=== PATIENT | male | born 1960 | race Hispanic/Latino ===

== ENCOUNTER 2016-12-20 10:04 | Inpatient (IN) | payer MEDICARE ==
[2016-12-20] MEDS ORDERED: methylPREDNISolone Sod Succ/PF 125 MG/2 ML VIAL ONE (10:30)
[2016-12-20] MEDS ORDERED: Water For Inject, Bacteriostat 30 ML ONE (10:30)
[2016-12-20 10:54] LABS: #Basophils 0.1 thou/uL (0.0-0.2); #Eosinphils 0.2 thou/uL (0.0-0.7); #Monocytes 0.6 thou/uL (0.11-0.59); #Neutrophils 4.3 thou/uL (1.40-6.50); %Basophils 0.9 % (0.0-1.0); %Eosinophils 2.7 % (0.0-10.0); %Monocytes 7.7 % (0.0-10.0); Hematocrit 44.8 % (42.0-52.0); Mean Platelet Volume 7.2 fL (7.4-10.4); Red Blood Cell (RBC) Count 4.28 mill/uL (4.70-6.10); White Blood Cell (WBC) Count 7.1 thou/uL (4.8-10.8)
[2016-12-20 11:03] LABS: ALT (SGPT) 17 U/L (8-55); AST (SGOT) 17 U/L (5-34); Alkaline Phosphatase 115 U/L (40-150); Anion Gap 14 mmol/L (10-20); BUN (Urea Nitrogen) 19 mg/dL (8.4-25.7); Bilirubin, Total 0.8 mg/dL (0.2-1.2); Calc. Creatinine Clearance 0 mL/min (70-130); Calcium 9.7 mg/dL (7.8-10.44); Carbon Dioxide 30 mmol/L (22-29); Chloride 102 mmol/L (98-107); Estimated GFR-MDRD 12; Globulin 3.9 g/dL (2.4-3.5); Protein, Total 7.9 g/dL (6.0-8.3)
[2016-12-20 11:07] LABS: Troponin I 0.035 ng/mL (< 0.028)
--- NOTE | 2016-12-20 11:11 | RAD ---
UPRIGHT PORTABLE CHEST ONE VIEW: HISTORY: A 56-year-old male with cough and wheezing. The patient is on dialysis. COMPARISON: 09/03/2016 FINDINGS: Postop midline sternotomy and right ICD. Monitor leads overly the chest. Bilateral vascular conges tion with minimal costophrenic angle blunting and suggestion of small pleural effusions. Appearance is stable to actually slightly improved from the 09/03/2016 study. No confluent pneumonia. IMPRESSION: 1. Postoperative midline sternotomy and right implantable cardioverter-defibrillator. 2. Minimal cardiomegaly, mild vascular congestion, and small pleural effusions, showing improvement from 09/03/2016. 3. No significant new process. POS: [facility]
[2016-12-20] MEDS ORDERED: cefTRIAXone\\ROCEPHIN 1 GM VIAL ONE (12:15)
[2016-12-20] MEDS ORDERED: Ondansetron HCl/PF 4 MG/2 ML Vial IVP PRN (13:05)
[2016-12-20] MEDS ORDERED: Acetaminophen 325 MG TAB PO PRN (13:05)
[2016-12-20] MEDS ORDERED: Ondansetron ODT 4 MG TAB SL PRN (13:05)
[2016-12-20 14:04] VITALS: BMI 32.1
[2016-12-20] MEDS ORDERED: Nitroglycerin 0.4 MG TAB (25 Tab Bottle) SL PRN (14:30)
[2016-12-20] MEDS ORDERED: ALPRAZolam 1 MG TAB PO PRN (14:30)
[2016-12-20] MEDS ORDERED: Albuterol Sulfate 2.5 mg/3 ml Neb NEB PRN (14:30)
[2016-12-20] MEDS: Heparin 5,000 UNITS/ML VIAL SC SCH ×2 (15:24→21:19)
[2016-12-20] MEDS ORDERED: Dextrose 50% Abboject 50 ML SYRINGE SLOW IVP PRN (16:01)
[2016-12-20] MEDS ORDERED: Dextrose 5% in Water 1,000 ML IV PRN (16:01)
[2016-12-20] MEDS ORDERED: HumaLOG 300 UNITS/3 ML VIAL SC PRN (16:01)
[2016-12-20] MEDS: Sevelamer Carbonate 800 MG TAB PO SCH (17:39)
--- NOTE | 2016-12-20 17:43 | HP-2 ---
CODE STATUS: FULL. PRIMARY CARE PHYSICIAN: Kathryn Huggins M.D. ATTENDING PHYSICIAN: Kathryn Huggins M.D. RESIDENT: Latoya Sebastian D.O. HISTORIAN: Patient and prior records. SPECIALIST: David Campbell M.D. CHIEF COMPLAINT: Difficulty breathing. HISTORY OF PRESENT ILLNESS: This is a 56-year-old patient with end-stage renal disease, on hemodialysis Sunday, Sunday, Sunday with Dr. Campbell, coronary artery disease status post CABG in 2006, diastolic congestive heart failure with the last EF of 60-65% on 08/2016 and atrial fibrillation status post pacemaker, presenting with complaints of shortness of breath during dialysis today. He did get his full 4hour treatment of dialysis today. During his dialysis, the patient became hypoxic and was sent to the emergency room. He notes some white sputum productive cough over the past 10 days, but denies any fevers, chills, nausea, or vomiting. Admits to increase shortness of breath; however, he did have his oxygen taken away about 2 months ago as he was not returning enough oxygen tanks at that time. Since that time, he has had progressive shortness of breath and feels that this has worsened and is unable to lay flat. In the emergency room, he was given 1 gram of Rocephin IV piggyback, methylprednisolone, and DuoNebs x3. He was feeling much better and getting ready for discharge home; however, he was noted to desaturation down to 77% upon exertion and looked ashen at that time; therefore, the patient was admitted to the hospital. PAST MEDICAL HISTORY: 1. End-stage renal disease on hemodialysis Sunday, Sunday, Sunday. 2. Insulin-dependent diabetes. 3. Atrial fibrillation status post pacemaker. 4. Hypertension. 5. Chronic thrombocytopenia. 6. Hyperlipidemia. 7. Anxiety. 8. Coronary artery disease status post CABG in 2006. 9. GERD. 10. Diastolic congestive heart failure, ejection fraction of 60-65% on 08/2016. 11. History of hepatitis C noted on previous labs; however, the patient has never been treated for this and unsure if he was really diagnosed with this. PAST SURGICAL HISTORY: 1. PD catheter placement and subsequent removal. 2. AV fistula. 3. Cuffed hemodialysis catheter. 4. CABG in 2006. 5. Pacemaker. 6. Left [id number] amputation. 7. Left toe removal. ALLERGIES: 1. CEPHALEXIN. 2. FOSINOPRIL. 3. KEFLEX. 4. MONOPRIL. 5. BACLOFEN. MEDICATIONS: 1. Nitro 0.4 mg sublingual p.r.n. chest pain. 2. Alprazolam 1 mg p.o. b.i.d. p.r.n. 3. Diltiazem extended release 120 mg p.o. daily. 4. Lantus 20 units subcu at bedtime. 5. Paroxetine 10 mg p.o. daily. 6. Atorvastatin 40 mg p.o. daily. 7. Renvela 800 mg tablets take 6 tablets by mouth 3 times a day. 8. Aspirin 325 mg p.o. daily. 9. Vitamin B complex with folic acid/ Dialyvite take one p.o. daily. 10. Isosorbide mononitrate extended release 60 mg p.o. daily. 14. ProAir, albuterol 1-2 puffs by mouth q.4 h. p.r.n. shortness of breath. 15. Metoprolol succinate extended release 25 mg p.o. daily. FAMILY HISTORY: Mom has diabetes. Dad of heart disease. SOCIAL HISTORY: Smoked half pack a day for several years but quit several years ago. Denies any current alcohol or drug use. He is with one child. REVIEW OF SYSTEMS: GENERAL: He denies any fevers, chills, or appetite changes. EYES: Denies any vision changes or eye pain. ENT: Admits to nasal congestion, rhinorrhea. Denies any sore throat. RESPIRATORY: Admits to cough, congestion, shortness of breath, exercise intolerance. CARDIOVASCULAR: Denies any chest pain, palpitations, or edema. Admits to paroxysmal nocturnal dyspnea and orthopnea. GASTROINTESTINAL: Denies any nausea, vomiting, diarrhea, constipation, abdominal pain, or GI pain. No GI bleeding. GENITOURINARY: Denies making any urine. SKIN: Denies any rashes or lesions. MUSCULOSKELETAL: Denies any pain or tenderness. NEUROLOGIC: Denies any weakness or numbness. PSYCHIATRIC: He does have chronic anxiety. Denies any depression. PHYSICAL EXAMINATION: VITAL SIGNS: Blood pressure 117/78, pulse 81, respirations of 24, T-max 97.8, pulse ox 99% on 3 liters. Current weight 89 kilograms. GENERAL: Alert and oriented x4. He is currently on oxygen. He is well developed. EYES: Pupils equal and reactive to light. Extraocular muscles are intact. He does have bilateral scleral icterus. ENT: He does have nasal mucosa within normal limits. He does have postnasal drip. NECK: Supple. No lymphadenopathy. CARDIOVASCULAR: Distant heart sounds, difficult to hear due to his lung sounds. He does have wheezing, rhonchi and crackles bilaterally both lungs. SKIN: He does have multiple tattoos. No cyanosis noted. ABDOMEN: Soft, nontender to palpation. He does have hepatomegaly. EXTREMITIES: Left BKA. No cyanosis, no edema. NEUROLOGIC: No focal deficits. Cranial nerves II-XII intact. GCS of 15. PSYCHIATRIC: Appropriate. LABORATORY DATA:CBC: WBC 7.1, hemoglobin of 14.1, hematocrit of 44.8, and platelets 105. CMP: Sodium 143, potassium 3.4, chloride 102, bicarbonate 30, BUN 19, creatinine 4.92, which is down from his baseline creatinine of about 6-9, and glucose 93. Calcium 9.7, total bilirubin 0.8, total protein 7.9, albumin 4.0, AST 17, ALT 17 , and alkaline phosphatase 115. CK-MB 3.3. Troponin I 0.03, which is down from his typical 0.059. EKG shows paced rhythm. Chest x-ray postoperative sternotomy and right implantable CV defibrillator, minimal cardiomegaly, mild vascular congestion, small pleural effusion which is also improved since last chest x-ray 3 months ago. ASSESSMENT AND PLAN: This is a 56-year-old patient with end-stage renal disease on hemodialysis Sunday, Sunday, and Sunday, who presents with dyspnea: 1. Acute Hypoxic Respiratory Failure, likely secondary to acute on chronic COPD. Patient previously was on home oxygen, however was not using it enough, so it was taken away. Will need request home oxygen. Educate patient on the importance of this. 2. Acute on chronic obstructive pulmonary disease exacerbation. Continue prednisone 40 mg p.o. daily, DuoNebs, albuterol p.r.n., Levofloxacin 750 mg IV daily. We will need home oxygen prior to discharging the patient. 3. End-stage renal disease on hemodialysis. Consult with Dr. Campbell. Continue home medications. He will continue dialysis Sunday, Sunday, Sunday and possibly go for dialysis again this afternoon to see if he can tolerate more at this time. 4. Hepatitis C positive in the past. We will recheck hepatitis C RNA and HIV and RPR were discussed with the patient. The patient has never been treated before some likely we will need GI consult as outpatient for further evaluation and consideration of treatment. 5. History of paroxysmal atrial fibrillation, status post pacemaker. The patient currently paced. Continue home medications. 6. Hyperlipidemia. Continue home medications. 7. Anxiety. Continue home medications, stable. 8. Coronary artery disease status post coronary artery bypass graft in 2006. Continue home medications. 9. Gastroesophageal reflux disease. Continue home medications. 10. Diastolic congestive heart failure. Last echo on 2016 which showed EF of 60-65%. 11. Chronic thrombocytopenia which is stable. Disposition lengthy hospital stay 2 days. This history and physical exam as well as management were discussed with Dr. Huggins, who agrees with the above assessment and plan. LINA
[2016-12-20 18:34] LABS: PTT 33.9 SEC (22.9-36.1); Prothrombin Time 16.1 SEC (12.0-14.7)
[2016-12-20 18:51] LABS: Troponin I 0.025 ng/mL (< 0.028)
[2016-12-20] MEDS: Atorvastatin Calcium 40 MG TAB PO SCH (21:18)
[2016-12-20] MEDS: Insulin Detemir 100 UNITS/ML 20 UNITS in Pre-Filled Syringe 1 EACH SC SCH (21:19)
[2016-12-20 21:32] LABS: Troponin I 0.012 ng/mL (< 0.028)
[2016-12-21 05:04] LABS: #Lymphocytes 0.7 thou/uL (1.20-3.40); #Monocytes 0.2 thou/uL (0.11-0.59); #Neutrophils 3.9 thou/uL (1.40-6.50); %Basophils 0.2 % (0.0-1.0); %Eosinophils 0.3 % (0.0-10.0); %Lymphocytes 14.1 % (21.0-51.0); %Monocytes 4.3 % (0.0-10.0); Hematocrit 40.1 % (42.0-52.0); Mean Platelet Volume 7.8 fL (7.4-10.4); Red Blood Cell (RBC) Count 3.79 mill/uL (4.70-6.10); White Blood Cell (WBC) Count 4.8 thou/uL (4.8-10.8)
[2016-12-21 05:34] LABS: ALT (SGPT) 14 U/L (8-55); AST (SGOT) 13 U/L (5-34); Alkaline Phosphatase 100 U/L (40-150); BUN (Urea Nitrogen) 38 mg/dL (8.4-25.7); Bilirubin, Total 0.5 mg/dL (0.2-1.2); Calc. Creatinine Clearance 15 mL/min (70-130); Calcium 9.9 mg/dL (7.8-10.44); Chloride 97 mmol/L (98-107); Estimated GFR-MDRD 8; Globulin 3.5 g/dL (2.4-3.5); Protein, Total 7.1 g/dL (6.0-8.3)
[2016-12-21 05:55] LABS: Anion Gap 19 mmol/L (10-20); Carbon Dioxide 25 mmol/L (22-29)
[2016-12-21] MEDS: HumaLOG 300 UNITS/3 ML VIAL SC PRN ×2 (06:17→16:58)
--- NOTE | 2016-12-21 09:04 | PDOC.FM ---
- Subjective Subjective: Hospital day 2 pt reports his SOB has improved and he is able to clear sputum. Desaturates off of O2. Will likely need home O2 since he was previously on it. Denies CP, NVDC. No acute events overniht - Objective Vital Signs & Weight: Vital Signs (12 hours) Temp Pulse Resp BP Pulse Ox 12/21/16 07:03 98 12/21/16 07:01 89 20 98 12/21/16 07:00 97.6 F 81 18 154/69 H 91 L 12/21/16 04:39 98.0 F 85 18 126/75 98 12/21/16 01:01 98.1 F 80 18 105/62 97 Weight Weight 90.22 kg I&O: 12/20/16 12/21/16 12/22/16 06:59 06:59 06:59 Intake Total 670 Output Total 4000 Balance -3330 Result Diagrams: 12/21/16 04:07 12/21/16 04:07 <Brayan Rm - Last Filed: 12/21/16 09:06> - Objective Vital Signs & Weight: Vital Signs (12 hours) Temp Pulse Resp BP BP Pulse Ox 12/21/16 09:42 87 154/69 H 12/21/16 07:03 98 12/21/16 07:01 89 20 98 12/21/16 07:00 97.6 F 81 18 154/69 H 91 L 12/21/16 04:39 98.0 F 85 18 126/75 98 12/21/16 01:01 98.1 F 80 18 105/62 97 Weight Weight 90.22 kg I&O: 12/20/16 12/21/16 12/22/16 06:59 06:59 06:59 Intake Total 670 Output Total 4000 Balance -3330 Result Diagrams: 12/21/16 04:07 12/21/16 04:07 <Robson Saxena - Last Filed: 12/21/16 10:17> Phys Exam - Physical Examination Constitutional: NAD HEENT: PERRLA, moist MMs, sclera anicteric Respiratory: wheezing present diffuse rhonchi and end expiratory wheezes Cardiovascular: RRR, no significant murmur, no rub Gastrointestinal: soft, non-tender, no distention, positive bowel sounds Musculoskeletal: no edema s/p left BKA, right TMA Neurological: non-focal, moves all 4 limbs <Brayan Rm - Last Filed: 12/21/16 09:06> Dx/Plan (1) COPD (chronic obstructive pulmonary disease) Status: Acute (2) Hypoxia Code(s): R09.02 - HYPOXEMIA Status: Acute (3) CAD (coronary artery disease), [place] coronary artery Code(s): I25.10 - ATHSCL HEART DISEASE OF [place] CORONARY ARTERY W/O ANG PCTRS Status: Chronic Qualifiers: [place] vs. transplanted heart: [place] heart (4) Diabetes mellitus, type II, insulin dependent Code(s): E11.9 - TYPE 2 DIABETES MELLITUS WITHOUT COMPLICATIONS; Z79.4 - LEAD HANDLER (CURRENT) USE OF INSULIN Status: Chronic (5) End stage renal disease on dialysis Code(s): N18.6 - END STAGE RENAL DISEASE; Z99.2 - DEPENDENCE ON RENAL DIALYSIS Status: Chronic (6) HTN (hypertension) Code(s): I10 - ESSENTIAL (PRIMARY) HYPERTENSION Status: Chronic Qualifiers: Hypertension type: essential hypertension Qualified Code(s): I10 - Essential (primary) hypertension - Plan Plan: continue home medications for chronic medical conditions, continue dialysis duonebs carmen and prn will add flutter valve/is continnue abx continue oral prednisone pt clinical picture improved, continue current treatment <Brayan Rm - Last Filed: 12/21/16 09:06> Attending Addendum - Attending Addendum I personally evaluated the patient and discussed the management with Dr. Rm. I agree with the History, Examination, Assessment and Plan documented above with any addition or exceptions noted below. 1/2 BCx positive. Will await 48hour results. Patient significantly improved from yesterday. Will need home oxygen. Likely d/c home tomorrow. <Rboson Saxena - Last Filed: 12/21/16 10:17>
[2016-12-21] MEDS: predniSONE 20 MG TAB PO SCH (09:38)
[2016-12-21] MEDS: Metoprolol Tartrate 25 MG TAB PO SCH (09:38)
[2016-12-21] MEDS: Aspirin 325 MG TAB PO SCH (09:38)
[2016-12-21] MEDS: Folic Acid/Vit B Comp W-C PO SCH (09:40)
[2016-12-21] MEDS: PARoxetine 20 MG TAB PO SCH (09:41)
[2016-12-21] MEDS: Sevelamer Carbonate 800 MG TAB PO SCH ×3 (09:43→16:42)
[2016-12-21] MEDS: Heparin 5,000 UNITS/ML VIAL SC SCH ×3 (09:44→20:58)
--- NOTE | 2016-12-21 14:08 | CON ---
DATE OF CONSULTATION: 12/21/2016 HISTORY OF PRESENT ILLNESS: Mr. Goodman is a 56-year-old white male with ESRD and admitted for short ness of breath. He underwent hemodialysis yesterday with maximal fluid removal. However, after lauren lysis, he was noted to be hypoxemic, was sent to the ER. He was noted to have COPD exacerbation. N eb treatments were given with improvement of the breathing early this morning. I did review the [facility] st x-ray which showed increased lung markings but this is improved from a previous chest x-ray. My bias is to do an extra dialysis - 2 hours with him. REVIEW OF SYSTEMS: No chest pain. Positive for shortness of breath. No nausea, no vomiting, no di arrhea, no syncopal episode, no fever or chills. No gross hematuria. No dysuria, no urinary freque ncy, no diarrhea, no constipation. No hematochezia, no melena, no hematemesis. MEDICATIONS: DuoNeb q.4 hours p.r.n. and regular schedules, Xanax 1 mg p.o. b.i.d. as needed, Lipit or 40 mg at bedtime, aspirin 325 mg tablet once a day, heparin 5000 units subcu t.i.d., diltiazem CD 120 mg q. day, insulin detemir 20 units subcutaneously at bedtime, Humalog sliding scale, Imdur 60 mg daily, Levaquin 500 mg every other day, Nitrostat p.r.n., Paxil 10 mg q. day, prednisone 40 mg q. a.m., Renvela 800 mg 5 tablets t.i.d., vitamin D as needed, and vitamin B q. day. PAST MEDICAL HISTORY: 1. ESRD - maintenance hemodialysis. 2. COPD. 3. Coronary artery disease. 4. Status post [place]. 5. Peripheral vascular disease. 6. Status post calciphylaxis. 7. Hyperlipidemia. 8. Depression. PAST SURGICAL HISTORY: 1. Status post left BKA. 2. Status post skin biopsy. 3. Status post cardiac CABG. 4. Status post PD catheter placement with subsequent removal. 5. Status post AV fistula placement. 6. Status post pacemaker placement. 7. Status post cuffed dialysis catheter placement. 8. Status post right toe removal. 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 S tatus post multiple blood transfusions. Education 8th grade. Status post placement of multiple tat toos. Smoked for 30 years, two packs a day, currently no alcohol. No IV drug abuse. FAMILY HISTORY: No family history of ESRD. ALLERGIES: HALDOL, BACLOFEN, KEFLEX, and LISINOPRIL. TRAUMA: None. IMMUNIZATIONS: Up to date. HOSPITALIZATIONS: Please see past medical history. PHYSICAL EXAMINATION: VITAL SIGNS: Blood pressure is noted at 154/69, heart rate 89, respiratory rate 20, and pulse ox 98 %. GENERAL: Awake, ambulatory, comfortable, obese, not in distress. SKIN: Adequate turgor. HEENT: Pinkish conjunctivae, anicteric sclerae. NECK: No neck mass, no carotid bruits, no JVD. CHEST: No deformities. LUNGS: Clear breath sounds. No wheezing, no crackles. HEART: Normal sinus rhythm. No murmur, no gallops, no rubs. ABDOMEN: Globular, soft, nontender. EXTREMITIES: No edema, status post left BKA. NEUROLOGIC: Awake, oriented in 3 spheres. Moving all extremities. No tremors. LABORATORY DATA: On 12/21/2016, white count 4.8, hemoglobin 12.7. Sodium 138, potassium 4.4, chlor colby 97, carbon dioxide 25, BUN 38, creatinine 6.88, glucose 284, calcium 9.1, albumin 3.6. Chest x- ray, increased lung markings. Troponin I 0.012. ASSESSMENT AND PLAN: 1. Shortness of breath, most likely from chronic obstructive pulmonary disease exacerbation. How er, due to findings of increased lung markings, we will do extra hemodialysis and will attempt to re move between 2 and 3 liters of fluid. 2. End-stage renal disease. After today's hemodialysis, we will place him back on Sunday, , Sunday dialysis session. His last Kt/V suggests he is adequately dialyzed with the current dialy sis regimen. Overall, agree with current management.
[2016-12-21] MEDS ORDERED: Docusate 100 MG CAP PO PRN (17:30)
[2016-12-21] MEDS: Insulin Detemir 100 UNITS/ML 20 UNITS in Pre-Filled Syringe 1 EACH SC SCH (20:58)
[2016-12-21] MEDS: Atorvastatin Calcium 40 MG TAB PO SCH (20:58)
[2016-12-22 00:45] VITALS: BP 109/72
[2016-12-22 08:22] LABS: Hepatitis A Total ABS Positive (Negative)
--- NOTE | 2016-12-22 08:50 | PDOC.FM ---
- Subjective Subjective: Pt reports he is feeling much better and his SOB has improved. Denies productive cough. Oxygen saturations have been much better overnight on 1-2LNC. He will require home oxygen. - Objective Vital Signs & Weight: Weight Admit Weight 90.22 kg Weight 90.22 kg I&O: 12/21/16 12/22/16 12/23/16 06:59 06:59 06:59 Intake Total 670 Output Total 4000 Balance -3330 Result Diagrams: 12/21/16 04:07 12/21/16 04:07 Phys Exam - Physical Examination Constitutional: NAD HEENT: moist MMs Respiratory: no rales scattered rhonchi and end expiratory wheezes, more pronounced in bases Cardiovascular: RRR, no significant murmur, no rub Gastrointestinal: soft, non-tender, no distention left BKA, rt LE TMA Neurological: non-focal, moves all 4 limbs Dx/Plan (1) COPD (chronic obstructive pulmonary disease) Status: Acute (2) Hypoxia Code(s): R09.02 - HYPOXEMIA Status: Acute (3) CAD (coronary artery disease), [place] coronary artery Code(s): I25.10 - ATHSCL HEART DISEASE OF [place] CORONARY ARTERY W/O ANG PCTRS Status: Chronic Qualifiers: [place] vs. transplanted heart: [place] heart (4) Diabetes mellitus, type II, insulin dependent Code(s): E11.9 - TYPE 2 DIABETES MELLITUS WITHOUT COMPLICATIONS; Z79.4 - KITCHEN HELPER (CURRENT) USE OF INSULIN Status: Chronic (5) End stage renal disease on dialysis Code(s): N18.6 - END STAGE RENAL DISEASE; Z99.2 - DEPENDENCE ON RENAL DIALYSIS Status: Chronic (6) HTN (hypertension) Code(s): I10 - ESSENTIAL (PRIMARY) HYPERTENSION Status: Chronic Qualifiers: Hypertension type: essential hypertension Qualified Code(s): I10 - Essential (primary) hypertension - Plan Plan: -pt will require home o2 for acute on chronic hypoxic/hypercapnic respiratory failure -failed walk test with O2 dropping to 86% by standing from sitting w/o O2. -dialysis today copd exacerbation resolving, continue flutter valve/IS, continue abx, continue duonebs
--- NOTE | 2016-12-22 10:16 | PRG ---
DATE OF SERVICE: 12/22/2016 RENAL MEDICINE SUBJECTIVE: Mr. Goodman is a 56-year-old white male with ESRD admitted for COPD exacerbation. [facility] is much improved. He also underwent 2 consecutive dialysis. I am currently at the bedside s upervising his dialysis. No new complaints. Shortness of breath has much improved. PHYSICAL EXAMINATION: VITAL SIGNS: Blood pressure 109/72, heart rate 84, respiratory rate 18, temperature 97.5, and pulse ox 99%. GENERAL: Awake, alert, supine, comfortable, not in distress. SKIN: Adequate turgor. HEENT: He has pinkish conjunctivae, anicteric sclerae. NECK: No neck mass, no carotid bruits, no JVD. CHEST: No deformities. LUNGS: Clear breath sounds, no wheezing, no crackles. HEART: Normal sinus rhythm. No murmur, no gallops or rubs. ABDOMEN: Globular, soft, nontender. EXTREMITIES: No edema, status post left BKA. MEDICATIONS: Medications of 12/22/2016 was reviewed. LABORATORY DATA: Laboratories of 12/21/2016; sodium 138, potassium 4.4, chloride 97, carbon dioxide 25, BUN 38, creatinine 6.88, AST 13, ALT 14. ASSESSMENT AND PLAN: 1. Shortness of breath - secondary to chronic obstructive pulmonary disease exacerbation. Continue current nebulizer treatment, possibility of superimposed congestive heart failure also remains as a possibility, but I doubt it. However, he did receive 2 consecutive dialysis for fluid removal. 2. End-stage renal disease, stable. Tolerating current hemodialysis regimen, maxing out fluid juan j wayne as tolerated by the patient. Agree with current management.
[2016-12-22] MEDS: Sevelamer Carbonate 800 MG TAB PO SCH ×2 (11:28→11:33)
[2016-12-22] MEDS: Aspirin 325 MG TAB PO SCH (11:29)
[2016-12-22] MEDS: predniSONE 20 MG TAB PO SCH (11:29)
[2016-12-22] MEDS: Metoprolol Tartrate 25 MG TAB PO SCH (11:30)
[2016-12-22] MEDS: Folic Acid/Vit B Comp W-C PO SCH (11:30)
[2016-12-22] MEDS: PARoxetine 20 MG TAB PO SCH (11:31)
[2016-12-22 12:01] VITALS: TEMP 97.9
[2016-12-25 14:16] LABS: Hepatitis C Quantitation 218000 IU/mL (.); log10 5.338 (.)
--- NOTE | 2016-12-26 08:43 | DIS-2 ---
DATE OF ADMISSION: 12/20/2016 DATE OF DISCHARGE: 12/22/2016 LOCATION: [place], [place]. RESIDENT PHYSICIAN: Brayan Rm D.O. ADMITTING ATTENDING: Dr. Robson Saxena. DISCHARGE ATTENDING: Dr. Robson Saxena. CONSULTATION: Nephrology, Dr. David Campbell. PROCEDURES: Chest x-ray done on 12/20/2016 showed postoperative midline sternotomy and right implan table cardioverter defibrillator. Also showed minimal cardiomegaly, mild diastolic congestion and s mall pleural effusion, showing improvement since 09/03/2016. No significant new process. PRIMARY DIAGNOSIS: Hypoxic hypercapnic respiratory failure. SECONDARY DIAGNOSES: 1. Chronic obstructive pulmonary disease exacerbation. 2. Type 2 diabetes mellitus. 3. End-stage renal disease on dialysis. 4. Coronary artery disease. 5. Hypertension. 6. Hepatitis C. 7. Atrial fibrillation. DISCHARGE MEDICATIONS: 1. Levaquin 500 mg p.o. 2. Xanax 1 mg p.o. b.i.d. 3. Albuterol 1.25 mg nebulized q.8 hours. 4. ProAir 2 puff q.4 hours p.r.n. 5. Aspirin 325 mg p.o. daily. 6. Atorvastatin 40 mg p.o. at bedtime. 7. Cardizem 120 mg p.o. daily. 8. Levemir 20 units subcu at bedtime. 9. Imdur 60 mg p.o. daily. 10. Lopressor 25 mg p.o. daily. 11. Nitrostat 0.4 mg p.o. q.5 minutes p.r.n. 12. Paroxetine 10 mg p.o. daily. 13. Renvela 6 capsules p.o. t.i.d. with meals. 14. Prednisone 40 mg p.o. q.a.m. x2 days. DISCONTINUED MEDICATIONS: None. HISTORY OF PRESENT ILLNESS/HOSPITAL COURSE: The patient is a 56-year-old male that recently present ed to [place] [facility] on 12/20/2016 with chief complaint of shortness of breath during dialysis. Duri ng dialysis, it was noted that the patient became hypoxic and he was sent to the ER. In the ER, he was given nebulizer treatment, Rocephin and azithromycin and treated for COPD exacerbation and subse quently admitted to the floor. The patient has a history of previously being on home O2; however, t his was recently stopped for unknown reasons. In the hospital, the patient his walk test and desat jodie to less than 86% simply by standing. The patient was afebrile and vitals were stable throughout the hospital stay and the patient was satting at 95%-97% on 1-2 liters nasal cannula without ambula tion. The patient's dialysis was continued in hospital and the patient had a uncomplicated hospital course. He was sent home on Levaquin, which was renally dosed and prednisone to complete a 5-days course of prednisone. Additionally, the patient was sent home on home oxygen and will likely requir e oxygen chronically. DISPOSITION: The patient left the hospital in stable condition. DISCHARGE LOCATION: Discharged to home. DISCHARGE DIET: Heart healthy, renal diet. DISCHARGE ACTIVITY: As tolerated. FOLLOWUP: Follow up with primary care physician in 2-3 weeks.
== END 2016-12-22 15:17 | disposition home or self-care (01) | DRG 190 ==
LOC: ERS 10:04 → T4-B 11:49
PROVIDERS: ADMIT Family Medicine; ATTEND Family Medicine
PROC: 5A1D60Z (ICD-10-PCS; principal; 2016-12-21)
DX: J44.1 Chronic obstructive pulmonary disease with (acute) exacerbation (principal); N18.6 End stage renal disease; J96.21 Acute and chronic respiratory failure with hypoxia; I13.2 Hypertensive heart and chronic kidney disease with heart failure and with stage 5 chronic kidney disease, or end stage renal disease; D69.6 Thrombocytopenia, unspecified; E11.22 Type 2 diabetes mellitus with diabetic chronic kidney disease; J96.22 Acute and chronic respiratory failure with hypercapnia; I50.32 Chronic diastolic (congestive) heart failure; Z95.0 Presence of cardiac pacemaker; E78.5 Hyperlipidemia, unspecified; F41.9 Anxiety disorder, unspecified; I25.10 Atherosclerotic heart disease of native coronary artery without angina pectoris; Z95.1 Presence of aortocoronary bypass graft; Z79.4 Long term (current) use of insulin; I25.2 Old myocardial infarction; Z89.512 Acquired absence of left leg below knee; Z99.2 Dependence on renal dialysis; Z87.891 Personal history of nicotine dependence; Z86.19 Personal history of other infectious and parasitic diseases
CPT/HCPCS: 36415; 36416; 71010; 80053; 82553; 84484; 85025; 85610; 85730; 86704; 86706; 86708; 86780; 87040; 87149; 87340; 87389; 87521; 90935; 93005; 94640; 96374; 96375; G0257; J0696; J1644; J1815; J1956; J2930; J7506; J7620

== ENCOUNTER 2017-12-03 09:47 | Emergency (ER) | payer MEDICARE ==
[2017-12-03 10:17] LABS: #Eosinphils 0.1 thou/uL (0.0-0.7); #Monocytes 0.5 thou/uL (0.11-0.59); #Neutrophils 4.8 thou/uL (1.40-6.50); %Basophils 0.3 % (0.0-1.0); %Eosinophils 1.1 % (0.0-10.0); %Lymphocytes 15.1 % (21.0-51.0); %Monocytes 8.2 % (0.0-10.0); %Neutrophils 75.3 % (42.0-75.0); Hemoglobin 12.8 g/dL (14.0-18.0); Mean Corpuscular HGB CONC 33.7 g/dL (32.0-36.0); Mean Corpuscular Hemoglobin 32.6 pg (27.0-31.0); Mean Corpuscular Volume 96.6 fL (78.0-98.0); Mean Platelet Volume 6.8 fL (7.4-10.4); Platelet Count 120 thou/uL (130-400); RBC Distribution Width 14.1 % (11.5-14.5); Red Blood Cell (RBC) Count 3.94 mill/uL (4.70-6.10); White Blood Cell (WBC) Count 6.4 thou/uL (4.8-10.8)
--- NOTE | 2017-12-03 10:33 | RAD ---
PORTABLE CHEST: HISTORY: Chest pain. COMPARISON: A 12/20/16 exam. FINDINGS: Heart size is enlarged. There are postop sternotomy changes and a pacemaker. Pulmonary vessels are engorged. Prominent main pulmonary arteries are also seen. Slightly increased perihilar lung markin gs. IMPRESSION: Cardiomegaly with a suggestion of some pulmonary edema change, also prominent pulmonary arteries rais ing the possibility of some element of pulmonary artery hypertension. POS: [facility]
[2017-12-03 10:35] LABS: ALT (SGPT) 21 U/L (8-55); AST (SGOT) 24 U/L (5-34); Albumin 3.7 g/dL (3.5-5.0); Alkaline Phosphatase 162 U/L (40-150); Anion Gap 15 mmol/L (10-20); BUN (Urea Nitrogen) 21 mg/dL (8.4-25.7); Bilirubin, Total 0.8 mg/dL (0.2-1.2); CK (CPK) 66 U/L (30-200); Calc. Creatinine Clearance 0 mL/min (70-130); Calcium 8.9 mg/dL (7.8-10.44); Carbon Dioxide 28 mmol/L (22-29); Chloride 96 mmol/L (98-107); Estimated GFR-MDRD 12; Globulin 3.8 g/dL (2.4-3.5); Glucose 82 mg/dL (70-105); Potassium 3.7 mmol/L (3.5-5.1); Protein, Total 7.5 g/dL (6.0-8.3); Sodium 135 mmol/L (136-145)
[2017-12-03 10:38] LABS: CKMB 5.7 ng/mL (0-6.6); Troponin I 0.026 ng/mL (< 0.028)
== END 2017-12-03 14:51 | disposition home or self-care (01) ==
LOC: ERS 09:47
DX: I13.2 Hypertensive heart and chronic kidney disease with heart failure and with stage 5 chronic kidney disease, or end stage renal disease (principal); N18.6 End stage renal disease; I50.84 End stage heart failure; I25.10 Atherosclerotic heart disease of native coronary artery without angina pectoris; E11.9 Type 2 diabetes mellitus without complications; Z99.2 Dependence on renal dialysis
CPT/HCPCS: 36415; 71045; 80053; 82550; 82553; 83880; 84484; 85025; 93005

== ENCOUNTER 2017-12-26 10:21 | Observation (INO) | payer MEDICARE ==
--- NOTE | 2017-12-26 10:59 | RAD ---
PORTABLE CHEST ONE VIEW: 12/26/2017 10:30 a.m. HISTORY: Chest pain. The patient finished dialysis today. COMPARISON: 12/03/2017 FINDINGS: The heart size is enlarged. There are changes of median sternotomy. A right-sided pacemaker device remains in place. There is mild pulmonary vascular congestion. No pneumothorax, pneumothoraces, or large effusions are seen. Small pleural effusions may be present. POS: [facility]
[2017-12-26 11:08] LABS: #Eosinphils 0.1 thou/uL (0.0-0.7); #Lymphocytes 0.9 thou/uL (1.20-3.40); #Monocytes 0.6 thou/uL (0.11-0.59); #Neutrophils 4.3 thou/uL (1.40-6.50); %Basophils 0.8 % (0.0-1.0); %Lymphocytes 15.5 % (21.0-51.0); %Monocytes 10.1 % (0.0-10.0); %Neutrophils 72.6 % (42.0-75.0); Hemoglobin 12.7 g/dL (14.0-18.0); Mean Corpuscular Hemoglobin 32.1 pg (27.0-31.0); Mean Platelet Volume 7.4 fL (7.4-10.4); Platelet Count 98 thou/uL (130-400); Red Blood Cell (RBC) Count 3.97 mill/uL (4.70-6.10)
[2017-12-26] MEDS ORDERED: Nitroglycerin 2% Ointment 1 INCH/1 GM Packet ONE (11:21)
[2017-12-26] MEDS ORDERED: Nitroglycerin 0.4 MG TAB (25 Tab Bottle) ONE (11:21)
[2017-12-26 11:32] LABS: CKMB 5.6 ng/mL (0-6.6)
[2017-12-26 12:11] LABS: ALT (SGPT) 23 U/L (8-55); AST (SGOT) 27 U/L (5-34); Albumin 3.9 g/dL (3.5-5.0); Alkaline Phosphatase 173 U/L (40-150); Anion Gap 14 mmol/L (10-20); BUN (Urea Nitrogen) 23 mg/dL (8.4-25.7); Bilirubin, Total 0.6 mg/dL (0.2-1.2); CK (CPK) 47 U/L (30-200); Calc. Creatinine Clearance 0 mL/min (70-130); Calcium 9.3 mg/dL (7.8-10.44); Carbon Dioxide 30 mmol/L (22-29); Chloride 100 mmol/L (98-107); Estimated GFR-MDRD 13; Glucose 100 mg/dL (70-105); Lipase 51 U/L (8-78); Potassium 3.8 mmol/L (3.5-5.1); Protein, Total 7.9 g/dL (6.0-8.3); Sodium 140 mmol/L (136-145)
[2017-12-26] MEDS ORDERED: Morphine 4 MG/ML VIAL ONE (13:26)
[2017-12-26] MEDS ORDERED: Ondansetron HCl/PF 4 MG/2 ML Vial ONE (13:27)
[2017-12-26] MEDS ORDERED: Ondansetron ODT 4 MG TAB SL PRN (15:11)
[2017-12-26] MEDS ORDERED: Ondansetron HCl/PF 4 MG/2 ML Vial IVP PRN (15:11)
[2017-12-26] MEDS ORDERED: Acetaminophen 325 MG TAB PO PRN (15:11)
[2017-12-26] MEDS ORDERED: Nitroglycerin 0.4 MG TAB (25 Tab Bottle) PO PRN (15:31)
[2017-12-26 15:48] VITALS: BMI 34.7
--- NOTE | 2017-12-26 16:00 | PDOC.FPRHP ---
- History of Present Illness Chief Complaint: Chest pain History of Present Illness: This is a 57 yo M w/hx of CAD s/p multi vessel CABG, DM2, ESRD on HD, and COPD here with complaint of worsening exertional chest pain. Pt states that for the past month he has had chest pain and heart palpitation with any activity more than walking 50 ft to his vehicle. He states that there have been times during the periods of chest pain where he has associated n/v and diaphoresis, however this does not happen often. He takes nitro when he has the pain which helps. Per patient, his most recent cath resulted in findings of significant non operable disease. Since then he has not followed up with cardiology. He does not know when his last had a stress test or echo. Today in the ED he had 2 indeterminate trops at 0.03 with no concerning EKG findings. - Allergies/Adverse Reactions Allergies Allergy/AdvReac Type Severity Reaction Status Date / Time baclofen Allergy Verified 12/01/13 02:39 cephalexin monohydrate Allergy Rash Verified 12/01/13 02:39 [From Keflex] fosinopril sodium Allergy Verified 12/01/13 02:39 [From Monopril] haloperidol [From Haldol] Allergy Verified 12/01/13 02:39 haloperidol lactate Allergy Verified 12/01/13 02:39 [From Haldol] - Home Medications Medication Instructions Recorded Confirmed Type Aspirin 325 mg PO DAILY 11/05/12 12/26/17 History ALPRAZolam [Xanax] 1 mg PO BID #0 12/02/13 12/26/17 Rx Albuterol Sulfate 1.25 mg NEB S3HI-OR PRN #0 neb 07/16/15 12/26/17 Rx Albuterol Sulfate [Proair HFA] 2 puff INH Q4HR PRN #0 inh 07/16/15 12/26/17 Rx Atorvastatin Calcium [Lipitor] 40 mg PO HS #0 tab 07/16/15 12/26/17 Rx Isosorbide Mononitrate [Imdur] 60 mg PO DAILY #30 tab 07/16/15 12/26/17 Rx Nitroglycerin [Nitrostat] 0.4 mg PO Q5MIN PRN #0 tab 07/16/15 12/26/17 Rx Paroxetine HCl [PARoxetine HCl] 10 mg PO DAILY #0 tablet 07/16/15 12/26/17 Rx Diltiazem CD [Cardizem CD] 120 mg PO DAILY 12/20/16 12/26/17 History Insulin Detemir 100 UNITS/ML 20 units SC HS 12/20/16 12/26/17 History [Levemir] Metoprolol Tartrate [Lopressor] 25 mg PO DAILY 12/20/16 12/26/17 History Sevelamer Carbonate [Renvela] 6 cap PO TID-WM 12/20/16 12/26/17 History Folic Acid/Vit B Comp W-C 1 tab PO DAILY tab 12/22/16 12/26/17 Rx [Nephro-Ang] predniSONE 40 mg PO QAM-WM #4 tab 12/22/16 12/26/17 Rx Ranolazine [Ranexa] 500 mg PO BID #60 tab 12/27/17 Rx - History PMHx: CAD s/p CABG DM2 ESRD HLD pAfib s/p ablation Anxiety PSHx: CABG L BKA R mid tarsal amputation FHx: Social: 40 pack yr smoking hx, current non smoker Hx of etoh abuse, no longer drinks - Review of Systems General: denies: fever/chills, weight/appetite/sleep changes Eyes: reports: other (Complains of swelling of R upper eye lid. No changes in vision, discharge, eye pain, photophobia). denies: eye pain, vision changes ENT: denies: nasal congestion, rhinorrhea Respiratory: reports: exercise intolerance. denies: cough, congestion, shortness of breath Cardiovascular: reports: chest pain, palpitation. denies: edema, orthopnea Gastrointestinal: reports: nausea (x1). denies: vomiting, abdominal pain Skin: denies: rashes, lesions, jaundice Musculoskeletal: denies: pain, tenderness, stiffness Neurological: denies: numbness, syncope Psychological: denies: anxiety, depression - Vital signs BP: 102/65 HR: 81 RR: 14 Tmax: 97.3 Pox: 94% on 2L Wt: 100 kg - Physical Exam Constitutional: NAD, awake, alert and oriented HEENT: normocephalic and atraumatic, PERRLA, EOMI, MMM -HEENT: Edema and erythema of R upper eye lid. No tenderness or discharge. No photophobia Neck: trachea midline Chest: no-tender to palpation, no lesions Heart: RRR, no murmurs/rubs/gallops, no edema Lungs: CTAB, no respiratory distress, good air movement Abdomen: soft, non-tender Musculoskeletal: normal structure -Musculoskeletal: L BKA R transmetatarsal amputation Neurological: no focal deficit, CN II-XII intact Skin: no rash/lesions, good turgor Heme/Lymphatic: no unusual bruising or bleeding Psychiatric: normal mood and affect FMR H&P: Results - Labs Result Diagrams: 12/26/17 10:54 12/26/17 11:35 Lab results: WBC 6.0 thou/uL (4.8-10.8) 12/26/17 10:54 Hgb 12.7 g/dL (14.0-18.0) L 12/26/17 10:54 Hct 41.1 % (42.0-52.0) L 12/26/17 10:54 MCV 103.0 fL (78.0-98.0) H 12/26/17 10:54 Plt Count 98 thou/uL (130-400) L 12/26/17 10:54 Neutrophils % 72.6 % (42.0-75.0) 12/26/17 10:54 Sodium 140 mmol/L (136-145) 12/26/17 11:35 Potassium 3.8 mmol/L (3.5-5.1) 12/26/17 11:35 Chloride 100 mmol/L (98-107) 12/26/17 11:35 Carbon Dioxide 30 mmol/L (22-29) H 12/26/17 11:35 BUN 23 mg/dL (8.4-25.7) 12/26/17 11:35 Creatinine 4.80 mg/dL (0.6-1.3) H 12/26/17 11:35 Glucose 100 mg/dL (70-105) 12/26/17 11:35 Calcium 9.3 mg/dL (7.8-10.44) 12/26/17 11:35 Total Bilirubin 0.6 mg/dL (0.2-1.2) 12/26/17 11:35 AST 27 U/L (5-34) 12/26/17 11:35 ALT 23 U/L (8-55) 12/26/17 11:35 Alkaline Phosphatase 173 U/L (40-150) H 12/26/17 11:35 Creatine Kinase 47 U/L (30-200) 12/26/17 11:35 CK-MB (CK-2) 5.6 ng/mL (0-6.6) 12/26/17 10:54 B-Natriuretic Peptide 966.5 pg/mL (0-100) H 12/26/17 11:35 Serum Total Protein 7.9 g/dL (6.0-8.3) 12/26/17 11:35 Albumin 3.9 g/dL (3.5-5.0) 12/26/17 11:35 Lipase 51 U/L (8-78) 12/26/17 11:35 - EKG Interpretation EKG: V paced. NSR at 82. No ST or T wave changes - Radiology Interpretation Chest x-ray Status: image reviewed by me, report reviewed by me (No acute process) FMR H&P: A/P - Problem List (1) Chest pain Current Visit: No Status: Acute Code(s): R07.9 - CHEST PAIN, UNSPECIFIED Qualifiers: Chest pain type: chest pain due to myocardial ischemia Ischemic chest pain type: stable angina pectoris Qualified Code(s): I20.8 - Other forms of angina pectoris (2) COPD (chronic obstructive pulmonary disease) Current Visit: No Status: Chronic (3) CAD (coronary artery disease), [place] coronary artery Current Visit: No Status: Chronic Code(s): I25.10 - ATHSCL HEART DISEASE OF [place] CORONARY ARTERY W/O ANG PCTRS Qualifiers: [place] vs. transplanted heart: [place] heart (4) Diabetes mellitus, type II, insulin dependent Current Visit: No Status: Chronic Code(s): E11.9 - TYPE 2 DIABETES MELLITUS WITHOUT COMPLICATIONS; Z79.4 - FDC (CURRENT) USE OF INSULIN (5) End stage renal disease on dialysis Current Visit: No Status: Chronic Code(s): N18.6 - END STAGE RENAL DISEASE; Z99.2 - DEPENDENCE ON RENAL DIALYSIS (6) HTN (hypertension) Current Visit: No Status: Chronic Code(s): I10 - ESSENTIAL (PRIMARY) HYPERTENSION Qualifiers: Hypertension type: essential hypertension Qualified Code(s): I10 - Essential (primary) hypertension (7) Hepatitis C Current Visit: No Status: Chronic Code(s): B19.20 - UNSPECIFIED VIRAL HEPATITIS C WITHOUT HEPATIC COMA (8) Hyperlipidemia Current Visit: No Status: Chronic Code(s): E78.5 - HYPERLIPIDEMIA, UNSPECIFIED (9) Macrocytic anemia Current Visit: No Status: Chronic Code(s): D53.9 - NUTRITIONAL ANEMIA, UNSPECIFIED - Plan 1. Typical chest pain - most likely stable angina. - Patient apparently has known non operable CAD, will consult cardiology for further recommendations. It is unlikely that pt is a good candidate for stress test or cath. - Trend trops x3 - monitor on tele obs - nitro prn 2. CAD - continue home statin and imdur - pending cards recommendations will consider palliative consultation 3. DM2 - Continue home meds, currently well controlled - Low carb diet - BG ACHS 4. ESRD - consult Dr Campbell. MWF HD 5. HTN - controlled, continue home meds 6. COPD - at baseline. Code DNR Diet Consistent Carb, High protein, Heart healthy. NPO at midnight PPx Heparin Dispo: Guarded. Pt likely has a non operable condition and will need to be medically managed only. Length of stay pending cardiology recommendation FMR H&P: Upper Level - Plan Date/Time: 12/26/17 7067 I, [], have evaluated this patient and agree with findings/plan as outlined by manager internship resident. Pertinent changes/additions are listed here. Attending Addendum - Attending Addendum Date/Time: 12/26/17 4534 I personally evaluated the patient and discussed the management with Dr. Church I agree with the History, Examination, Assessment and Plan documented above with any addition or exceptions noted below. 57 yo male with multiple end-stage medical conditions presents with angina. Patient now with improved pain. Reports increased RAMOS with chest pain with short distances occuring more frequently. Associated with diaphoresis. VS reviewed. Labs reviewed. EKG reviewed. PE unchanged from resident exam as documented. 1. End-stage CAD: Inoperable disease per last cardiology note. Patient has some follow up with Dr. Grande. Continue current home meds with prn nitro. Consider Renexa but will discuss case with cards. 2. End-stage renal dz: Due for HD every //. No evidence of significant anemia that would worsen symptoms. Continue to monitor on tele. Trend labs. Consult cards and nephro. Adjust home meds as needed. Follow other co-morbidities. Santos
[2017-12-26] MEDS ORDERED: Dextrose 5% in Water 1,000 ML IV PRN (17:29)
[2017-12-26] MEDS ORDERED: Dextrose 50% Abboject 50 ML SYRINGE SLOW IVP PRN (17:29)
[2017-12-26] MEDS ORDERED: HumaLOG 300 UNITS/3 ML VIAL SC PRN ×2 (17:29)
[2017-12-26 18:10] LABS: Troponin I 0.028 ng/mL (< 0.028)
[2017-12-26] MEDS ORDERED: Melatonin 3 MG TAB PO PRN (20:11)
--- NOTE | 2017-12-26 21:02 | CON ---
DATE OF CONSULTATION: 12/26/2017 DATE OF ADMISSION: 12/26/2017 INDICATION FOR CONSULTATION: A 57-year-old patient with uncontrollable chest pain with inoperable co ronary artery disease. This is a very unfortunate 57-year-old gentleman who has been followed in the past by Dr. Lord and has underwent bypass surgery in the past. He also recently underwent a ca rdiac catheterization, I believe last year in 08/2016, at which time he was seen to have inoperable c oronary artery disease. He also has end-stage renal disease and is on hemodialysis. He had bypass s urgery in 2006. He had an echocardiogram. Most recently, I believe in 2015, this showed ejection fr action of 50%-55% with moderate left atrial dilatation, aortic valve sclerosis and mitral annular paramjit cifications and mild tricuspid and mitral valve regurgitation. He has also undergone pacemaker inser tion in the past by senior speech pathologist. There is single-chamber pacemaker to the right ventricle. He has chronic atrial fibrillation. At this time, he presented back to the hospital after he says he has chest pain which he cannot control by taking as many as 5 nitroglycerin at one time and continue d to have chest discomfort and he presented to the hospital for further evaluation and treatment with hopes that he can get something for pain relief. He is actually considered hospice in the past in t he hopes that he can get medications for his pain. He did receive some morphine today and said his p ain was much relieved, but still continues to have some mild discomfort at this time, his cardiac enz ymes were indeterminate. He does not have any significant indication that he has suffered a signific ant myocardial infarction. Troponin I was 0.03 and it is now decreased down to 0.028, which is withi n normal limits. His BNP was elevated at 965. He does undergo hemodialysis on Sunday, Wednesdays, a fridays. Does not appear that he is on any oral anticoagulations at home except for aspirin 325 m g a day. At this time, his EKG shows 100% pacing and one cannot determine if there is any evidence o f ischemia. PAST MEDICAL HISTORY: Significant for COPD, coronary artery disease, diabetes, end-stage renal disea se for which he is on hemodialysis, atrial fibrillation, hypertension, hepatitis C, hypercholesterole amelie. He has microcytic anemia. He has undergone a right forefoot amputation. He has had a left BKA . He has had bypass surgery in the past. He also had a myocardial infarction after the bypass surge ry in 2012. He has had left arm fistula for dialysis. He says fistula was placed in the right arm a nd has closed down. He has significant peripheral vascular disease. SOCIAL HISTORY: He smoked in the past up to [id number], but then he stopped. He has no alcohol us e. FAMILY HISTORY: Positive for diabetes. ALLERGIES: He is allergic to BACLOFEN, CEPHALEXIN, FOSINOPRIL, and other medications which include K eflex and HALDOL. MEDICATIONS PRIOR TO ADMISSION: Included aspirin 325 mg a day, alprazolam, albuterol nebulizer treat ments, isosorbide mononitrate 60 mg a day, nitroglycerin p.r.n., atorvastatin 40 mg a day, paroxetine HCL 10 mg a day, metoprolol 25 mg a day, Renvela 0.8 gram powder packets of 6 capsules p.o. t.i.d., he also is on insulin, diltiazem CD 120 mg a day, Folvite/vitamin B complex 1 tablet daily, prednison e 20 mg tablets, he takes 40 mg a day. REVIEW OF SYSTEMS: He denied any new HEENT complaints. He had no significant pulmonary complaints. He has some mild shortness of breath with exertion, but mainly he is limited by the chest discomfort . He has significant chest pain even at rest. He has chest pain, which is not relieved by the marilia l medications. He had no GI complaints or significant complaints. MUSCULOSKELETAL: He has some mild right lower extremity edema. Complains at times that he is able to ambulate with his prosthesi s on the left BKA. NEUROLOGIC: He denies any seizure or syncope. LABORATORY DATA: He has sodium 140, potassium is 3.8, CO2 of 30, creatinine is 4.8, alkaline phospha tase is 173. His troponin I as noted above. His hemoglobin is 12.7 with WBC of 6 and platelet count 98,000. IMPRESSION: 1. End-stage coronary disease which is inoperable. With the difficulty to treat by nitroglycerin or other medications, he is already taking beta blockers, diltiazem and aspirin as well as isosorbide 6 0 mg a day, and also p.r.n. nitroglycerin. 2. We will add Ranexa to his regimen to see if this will help some with the chest discomfort and Dr. Lord perhaps continued to manage his chest discomfort. Otherwise, I would suggest he consider speaking with the palliative care or hospice. 3. End-stage renal disease for which he will continue on his dialysis. 4. Type 2 diabetes will be dealt with by the primary care service. 5. Hypercholesterolemia. He should be taking medications. He is on atorvastatin. He will continue the atorvastatin. 6. History of hypertension. This is stable at this time. 7. Significant peripheral vascular disease. He is somewhat stable PHYSICAL EXAMINATION: MUSCULOSKELETAL: I could not palpate a right pedal pulse. He does have some mild discoloration of l ower extremity, but no significant edema was noted and he is status post a left BKA. A popliteal pul se was palpable in the right side. Otherwise, examination was relatively unremarkable ABDOMEN: Soft and flat and nontender. CARDIOVASCULAR: He has a regular rate and rhythm. He appears to be pacing. There is a well healed surgical incision on the left infraclavicular area after pacemaker insertion. He has no abdominal di scomfort. There were no masses palpable. CHEST: Clear to auscultation. Carotid pulses also are present. I did not hear any bruits. At this time, we will continue the medicines as noted and further care of the patient will be determi laura by Dr. Lord when he sees the patient tomorrow.
[2017-12-26] MEDS: Heparin 5,000 UNITS/ML VIAL SC SCH (21:53)
--- NOTE | 2017-12-27 08:10 | PDOC.FM ---
- Subjective Subjective: Pt seen at bedside this morning. No acute distress. He denies continued chest pain. No new symptoms. No acute events over night - Objective Vital Signs & Weight: Vital Signs (12 hours) Temp Pulse Resp BP Pulse Ox 12/27/17 04:06 97.6 F 82 18 102/55 L 95 Weight Weight 102.376 kg I&O: 12/26/17 12/27/17 12/28/17 06:59 06:59 06:59 Intake Total 700 Output Total 0 Balance 700 Result Diagrams: 12/26/17 10:54 12/26/17 11:35 <Roly Church - Last Filed: 12/27/17 08:07> - Objective Vital Signs & Weight: Vital Signs (12 hours) Temp Pulse Resp BP Pulse Ox 12/27/17 11:00 98.5 F 86 20 113/68 92 L 12/27/17 08:05 98.2 F 80 20 111/63 96 12/27/17 04:06 97.6 F 82 18 102/55 L 95 Weight Weight 102.376 kg I&O: 12/26/17 12/27/17 12/28/17 06:59 06:59 06:59 Intake Total 700 Output Total 0 Balance 700 Result Diagrams: 12/26/17 10:54 12/26/17 11:35 <Walker Ordonez - Last Filed: 12/27/17 13:27> Phys Exam - Physical Examination Constitutional: NAD HEENT: PERRLA, moist MMs Neck: no nodes, no JVD Respiratory: clear to auscultation bilateral Cardiovascular: RRR, no significant murmur Gastrointestinal: soft, non-tender, no distention Musculoskeletal: no edema L BKA, R mid tarsal amputation Neurological: non-focal, normal sensation, moves all 4 limbs Psychiatric: normal affect, A&O x 3 Skin: no rash, normal turgor <Roly Church - Last Filed: 12/27/17 08:07> Dx/Plan (1) Chest pain Code(s): R07.9 - CHEST PAIN, UNSPECIFIED Status: Acute Qualifiers: Chest pain type: chest pain due to myocardial ischemia Ischemic chest pain type: stable angina pectoris Qualified Code(s): I20.8 - Other forms of angina pectoris (2) COPD (chronic obstructive pulmonary disease) Status: Chronic (3) CAD (coronary artery disease), [place] coronary artery Code(s): I25.10 - ATHSCL HEART DISEASE OF [place] CORONARY ARTERY W/O ANG PCTRS Status: Chronic Qualifiers: [place] vs. transplanted heart: [place] heart (4) Diabetes mellitus, type II, insulin dependent Code(s): E11.9 - TYPE 2 DIABETES MELLITUS WITHOUT COMPLICATIONS; Z79.4 - VACUUM SPINDLE SANDER (CURRENT) USE OF INSULIN Status: Chronic (5) End stage renal disease on dialysis Code(s): N18.6 - END STAGE RENAL DISEASE; Z99.2 - DEPENDENCE ON RENAL DIALYSIS Status: Chronic (6) HTN (hypertension) Code(s): I10 - ESSENTIAL (PRIMARY) HYPERTENSION Status: Chronic Qualifiers: Hypertension type: essential hypertension Qualified Code(s): I10 - Essential (primary) hypertension (7) Hepatitis C Code(s): B19.20 - UNSPECIFIED VIRAL HEPATITIS C WITHOUT HEPATIC COMA Status: Chronic (8) Hyperlipidemia Code(s): E78.5 - HYPERLIPIDEMIA, UNSPECIFIED Status: Chronic (9) Macrocytic anemia Code(s): D53.9 - NUTRITIONAL ANEMIA, UNSPECIFIED Status: Chronic - Plan Plan: 1. Typical chest pain - most likely stable angina. - Per cardiology medical management only. Adding Ranexa. Pt will see Dr Lord today, then ready for dc - monitor on tele obs - nitro prn 2. CAD - continue home statin and imdur. Ranexa as above - will discuss hospice 3. DM2 - Continue home meds, currently well controlled - Low carb diet - BG ACHS 4. ESRD - consult Dr Campbell. [facility] 5. HTN - controlled, continue home meds 6. COPD - at baseline. Code DNR Diet Consistent Carb, High protein, Heart healthy. NPO at midnight PPx Heparin Dispo: Pt is currently stable for discharge <Roly Church - Last Filed: 12/27/17 08:07> Attending Addendum - Attending Addendum Date/Time: 12/27/17 0247 I personally evaluated the patient and discussed the management with Dr. Church. I agree with the History, Examination, Assessment and Plan documented above with any addition or exceptions noted below. <Walker Ordonez - Last Filed: 12/27/17 13:27>
[2017-12-27] MEDS: Heparin 5,000 UNITS/ML VIAL SC SCH ×2 (09:50→16:18)
--- NOTE | 2017-12-27 09:50 | CON ---
DATE OF CONSULTATION: 12/27/2017 HISTORY OF PRESENT ILLNESS: Mr. Goodman is a 57-year-old white male with ESRD, coronary artery diseas e, diabetes mellitus, COPD, and admitted for chest pain. His chest pain was unrelieved by sublingual nitro. He came today ER and is now admitted for further management. We are now being consulted for his maintenance hemodialysis. Please note, he did receive his regular dialysis yesterday. He has a lso been evaluated by his metallurgy laboratory technician. The plan is for the moment medical management. In addition, Ranexa has been added to his current cardiac meds. His chest pain is much improved this morning. REVIEW OF SYSTEMS: Intermittent chest pain, no shortness of breath, no nausea, no vomiting, no diarr hea, no syncopal episode, no productive cough, no fever or chills, no gross hematuria, no dysuria, no urine frequency, no syncopal episode, no sore throat. Appetite and energy level is fair. MEDICATIONS: Heparin 5000 units subcu t.i.d., Humalog sliding scale, melatonin 3 mg at bedtime, Divina xa 500 mg p.o. b.i.d. HOME MEDICATIONS: Include sevelamer 800 mg 4-5 capsules t.i.d., paroxetine 10 mg daily, metoprolol t artrate 25 mg daily, Imdur 60 mg daily, diltiazem CD 120 mg daily, aspirin 325 mg once a day, Xanax 1 mg p.o. b.i.d. PAST MEDICAL HISTORY: 1. ESRD from diabetic nephropathy on maintenance hemodialysis Sunday, Sunday, and Sunday. 2. Chronic obstructive pulmonary disease. 3. Coronary artery disease. 4. Status post myocardial infarction. 5. Peripheral vascular disease. 6. Hyperlipidemia. 7. Depression. 8. The patient is also status post calciphylaxis. PAST SURGICAL HISTORY: 1. Status post cuffed hemodialysis catheter placement. 2. Status post AV fistula placement. 3. Status post cardiac catheterization. 4. Status post CABG. 5. Status post skin biopsy. 6. Status post left BKA. 7. Status post right toe removal. 8. Status post pacemaker placement. 9. Status post PD catheter placement with subsequent removal. 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 Lives in [place]. S tatus post multiple blood transfusions. No IV drug abuse. Status post tobacco use 30 years, 2 packs a day. Alcohol none. Status post placement of multiple tattoos. FAMILY HISTORY: No family history of ESRD. ALLERGIES: HALDOL, BACLOFEN, KEFLEX, LISINOPRIL. TRAUMA: None. IMMUNIZATIONS: Up to date. HOSPITALIZATIONS: Please see past medical history. PHYSICAL EXAMINATION: VITAL SIGNS: Blood pressure 102/55, heart rate 62, respiratory rate 18, temperature 97.6, pulse ox 9 5%. GENERAL: Noted to be awake, alert, comfortable, not in overt distress. SKIN: Adequate turgor. HEENT: Pinkish conjunctivae, anicteric sclerae. NECK: No neck mass, no carotid bruits, no JVD. CHEST: No deformities. LUNGS: Clear breath sounds, no wheezing, no crackles. HEART: Normal sinus rhythm. No murmur, no gallops or rubs. ABDOMEN: Globular, soft, nontender, no masses. EXTREMITIES: No edema, no deformities. Status post leg amputation. NEUROLOGIC: Awake, oriented to 3 spheres. Moving all extremities. Noted with asterixis, no ataxia. LABORATORY DATA: 12/26/2017 - White count 6, hemoglobin 12.7. Sodium 140, potassium 3.8, chloride 1 00, carbon dioxide 30, BUN 23, creatinine 4.8, glucose 100. Troponin I 0.03. BNP 966. Chest x-ray of 12/26/2017 showed no infiltrates. There is increased lung markings. ASSESSMENT AND PLAN: 1. End-stage renal disease, stable. No indication for any emergent hemodialysis. Review of the las t Kt/V suggests he is adequately dialyzed with the current dialysis regimen. 2. Chest pain - medical management. Cardiology is following. 3. Hyperphosphatemia resume Renvela at 800 mg 4 tabs t.i.d. with meals. Overall I agree with current management. We will schedule for Sunday, Sunday, Sunday dialysis if the patient is still in the hospital.
[2017-12-27 12:00] VITALS: BP 113/68; TEMP 98.5
[2017-12-27] MEDS ORDERED: Sevelamer Carbonate 800 MG TAB PO SCH (12:00)
--- NOTE | 2017-12-27 14:55 | PRG ---
DATE OF SERVICE: 12/27/2017 SUBJECTIVE: Mr. Goodman is doing well. His symptoms have improved. He is currently on Ranexa in add ition to nitrates. PHYSICAL EXAMINATION: VITAL SIGNS: Blood pressure 113/65, pulse 86, temperature 98.5. LUNGS: Clear to auscultation. HEART: Regular rate and rhythm. ABDOMEN: Soft, nontender, nondistended. EXTREMITIES: No edema. IMPRESSION: 1. Recurrent angina. 2. Severe coronary artery disease. 3. Inoperable coronary artery disease. 4. End-stage renal disease. RECOMMENDATIONS: 1. Agree with Ranexa. 2. Continue nitrates. 3. Continue to monitor blood pressure closely. 4. From a CV standpoint, it would be okay for discharge as long as he continues to have improvement in symptoms. Plan is to follow up in the next 1-2 weeks.
--- NOTE | 2017-12-27 15:17 | EKG ---
Test Reason : Blood Pressure : / mmHG Vent. Rate : 081 BPM Atrial Rate : 093 BPM P-R Int : 000 ms QRS Dur : 196 ms QT Int : 464 ms P-R-T Axes : 000 -56 123 degrees QTc Int : 539 ms Ventricular-paced rhythm Abnormal ECG When compared with ECG of 03-DEC-2017 09:56, Vent. rate has decreased BY 4 BPM Confirmed by BRODY PRECIADO, SCheryl ([id number]) on 12/27/2017 3:16:48 PM Referred By: [facility] Confirmed By:DR. Barbara SKINNER MD
--- NOTE | 2017-12-28 00:59 | DIS-2 ---
DATE OF ADMISSION: 12/26/1917 DATE OF DISCHARGE: 12/27/2017 ADMITTING ATTENDING: Nirali Leung MD DISCHARGE ATTENDING: Walker Ordonez MD RESIDENT: Roly Church DO CONSULTATIONS: Lisa Levine MD, Cardiology; and David Campbell MD, Nephrology. PROCEDURES: Chest x-ray on 12/26/2017, finding of enlarged heart, median sternotomy right-sided pace maker in place, mild pulmonary vascular congestion, no pneumothorax or effusion. ADMITTING DIAGNOSIS: Atypical chest pain. SECONDARY DIAGNOSES: Coronary artery disease, type 2 diabetes, end-stage renal disease, hyperlipidem ia, paroxysmal atrial fibrillation, anxiety. MEDICATIONS: Aspirin 325 mg p.o. daily, Xanax 1 mg p.o. b.i.d., albuterol sulfate 1.25 mg/3 mL nebul ized q.8 hours p.r.n. shortness of breath, albuterol sulfate HFA 2 puffs inhaled q.4 hours p.r.n. sandra rtness of breath, Imdur 60 mg p.o. daily, Nitrostat 0.4 mg p.o. q.5 minutes p.r.n. chest pain, Lipito r 40 mg p.o. at bedtime, paroxetine 10 mg p.o. daily, metoprolol tartrate 25 mg p.o. daily, Renvela 0 .5 gram powder 6 caps p.o. t.i.d. with meals, Levemir 20 units before meals and at bedtime, diltiazem 120 mg p.o. daily, Nephro-Ang 1 tab p.o. daily, Prednisone 40 mg p.o. q.a.m., and Ranexa 500 mg p.o . b.i.d. HOSPITAL COURSE: This is a 57-year-old male with an extensive history of coronary artery disease, st atus post 4-vessel CABG. He had been having 4 weeks of increasing exertional chest pain and came to emergency room, where his troponins were found to be indeterminate at 0.03, followed by 0.03, followe d by 0.28. The patient was admitted for monitoring for ACS. Overnight, the patient had resolution o f chest pain. Troponins were downtrending and telemetry strip was normal. He was seen by Cardiology who was aware of the patient's history. It has been determined at a previous catheterization in 6 that he has nonoperable coronary artery disease. Cardiology recommended medical management only. Ranexa was added for anginal pain. It was recommended that the patient to follow up with Cardiology, Dr. Lord, who is his previous set off blocker for continued management. At the time of discharge, the patient was aware of his inoperable condition and the need for hospice and/or palliative care. DISCHARGE INSTRUCTIONS: 1. Location: Home. 2. Diet: Heart healthy, high protein, and low carbohydrates. 3. Activity: Ad selvin. 4. Followup: With PCP within 1 week, Dr. Kathryn Huggins of Cardiology in 1 week, Dr. Sarbjit cornejo, and with Nephrology as previously scheduled for hemodialysis.
== END 2017-12-27 16:22 | disposition home or self-care (01) ==
LOC: ERS 10:21 → 2SW 14:59
PROVIDERS: ADMIT Family Medicine; ATTEND Family Medicine
DX: I25.118 Atherosclerotic heart disease of native coronary artery with other forms of angina pectoris (principal); I12.0 Hypertensive chronic kidney disease with stage 5 chronic kidney disease or end stage renal disease; E11.22 Type 2 diabetes mellitus with diabetic chronic kidney disease; N18.6 End stage renal disease; J44.9 Chronic obstructive pulmonary disease, unspecified; I48.0 Paroxysmal atrial fibrillation; E78.5 Hyperlipidemia, unspecified; F41.9 Anxiety disorder, unspecified; F10.11 Alcohol abuse, in remission; B19.20 Unspecified viral hepatitis C without hepatic coma; D63.1 Anemia in chronic kidney disease; E78.00 Pure hypercholesterolemia, unspecified; E11.21 Type 2 diabetes mellitus with diabetic nephropathy; F32.9 Major depressive disorder, single episode, unspecified; Z87.891 Personal history of nicotine dependence; Z79.82 Long term (current) use of aspirin; Z79.4 Long term (current) use of insulin; Z79.52 Long term (current) use of systemic steroids; Z79.899 Other long term (current) drug therapy; Z88.1 Allergy status to other antibiotic agents; Z88.8 Allergy status to other drugs, medicaments and biological substances; Z95.1 Presence of aortocoronary bypass graft; Z89.512 Acquired absence of left leg below knee; Z99.2 Dependence on renal dialysis
CPT/HCPCS: 71045; 80053; 82550; 82553; 82962 ×2; 83690; 83880; 84484 ×2; 85025; 93005; 96374; 96375; 97139; 99285; G0378 ×2; 36415; 36416; 93010; J1644; J2270; J2405

== ENCOUNTER 2018-03-04 06:04 | Inpatient (IN) | payer MEDICARE ==
[2018-03-04 06:42] LABS: #Eosinphils 0.1 thou/uL (0.0-0.7); #Lymphocytes 0.7 thou/uL (1.20-3.40); #Monocytes 0.8 thou/uL (0.11-0.59); #Neutrophils 5.4 thou/uL (1.40-6.50); %Basophils 0.2 % (0.0-1.0); %Eosinophils 1.1 % (0.0-10.0); %Lymphocytes 10.3 % (21.0-51.0); %Neutrophils 77.4 % (42.0-75.0); Hemoglobin 12.8 g/dL (14.0-18.0); Mean Corpuscular HGB CONC 31.1 g/dL (32.0-36.0); Mean Corpuscular Hemoglobin 31.1 pg (27.0-31.0); Mean Corpuscular Volume 99.9 fL (78.0-98.0); Mean Platelet Volume 8.4 fL (7.4-10.4); Platelet Count 94 thou/uL (130-400); RBC Distribution Width 14.6 % (11.5-14.5); Red Blood Cell (RBC) Count 4.13 mill/uL (4.70-6.10)
[2018-03-04 06:55] LABS: Troponin I 0.021 ng/mL (< 0.028)
[2018-03-04 07:28] LABS: Albumin 3.4 g/dL (3.5-5.0)
[2018-03-04 07:30] LABS: Chloride 101 mmol/L (98-107); Potassium 6.1 mmol/L (3.5-5.1); Sodium 136 mmol/L (136-145)
[2018-03-04 07:31] LABS: Globulin 3.7 g/dL (2.4-3.5); Glucose 152 mg/dL (70-105); Protein, Total 7.1 g/dL (6.0-8.3)
[2018-03-04 07:32] LABS: Carbon Dioxide 18 mmol/L (22-29)
[2018-03-04 07:33] LABS: Bilirubin, Total 0.5 mg/dL (0.2-1.2)
[2018-03-04 07:34] LABS: Alkaline Phosphatase 149 U/L (40-150); Calc. Creatinine Clearance 0 mL/min (70-130); Estimated GFR-MDRD 6
[2018-03-04 07:35] LABS: BUN (Urea Nitrogen) 63 mg/dL (8.4-25.7)
[2018-03-04 07:36] LABS: AST (SGOT) 20 U/L (5-34)
[2018-03-04 07:37] LABS: ALT (SGPT) 19 U/L (8-55)
[2018-03-04 07:44] LABS: Anion Gap 23 mmol/L (10-20)
[2018-03-04 07:56] LABS: Actual Bicarbonate (HCO3a) 28.7 mEq/L (22-28); Analyzer IN Cardio ER; Base Excess (BEa) -1.4 mEq/L (-2.0 to +3.0); Calcium, Ionized 1.19 mmol/L (1.12-1.30); Carboxyhemoglobin (COHb) 2.2 gm% (0.0-3.0); Hemoglobin (Hb) 13.3 g/dL (14.0-18.0); O2 Tension (PaO2) 64.7 mmHg (80.0-100.0); Potassium - ABG Lab 5.79 mmol/L (3.70-5.30)
[2018-03-04 07:57] LABS: ALV-art Gradient 80.845 (0-20); CO2 Tension 77.5 mmHg (35.0-45.0); Puncture Site RBA; pH, Arterial 7.19 (7.35-7.45)
--- NOTE | 2018-03-04 08:05 | RAD ---
PORTABLE UPRIGHT FRONTAL CHEST RADIOGRAPH: DATE: 03/04/2018. COMPARISON: 12/26/2017. HISTORY: Weakness and dizziness, altered mental status. FINDINGS: Midline sternotomy wires are present. Stable single-lead transvenous pacing device. Heart is promin ent which may signify magnification and/or cardiac enlargement. There is no pneumothorax seen. There is new pulmonary vascular congestion and perihilar/bibasilar interstitial prominence. IMPRESSION: Pulmonary vascular congestion and interstitial prominence suggesting interval development of pulmonar y edema. A followup following treatment advised. POS: MICHAEL
[2018-03-04] MEDS ORDERED: methylPREDNISolone Sod Succ/PF 125 MG/2 ML VIAL ONE (08:36)
[2018-03-04 09:58] LABS: Troponin I 0.027 ng/mL (< 0.028)
[2018-03-04] MEDS ORDERED: Dextrose 50% Abboject 50 ML SYRINGE SLOW IVP PRN (10:32)
[2018-03-04] MEDS ORDERED: Dextrose 5% in Water 1,000 ML IV PRN (10:32)
[2018-03-04] MEDS ORDERED: Ondansetron PF 4 MG/2 ML Vial IVP PRN (10:39)
[2018-03-04] MEDS ORDERED: Ondansetron ODT 4 MG TAB PO PRN (10:39)
[2018-03-04] MEDS ORDERED: HumaLOG 300 UNITS/3 ML VIAL SC PRN (10:40)
[2018-03-04] MEDS ORDERED: Albuterol Sulfate 2.5 mg/3 ml Neb NEB PRN (10:40)
[2018-03-04] MEDS ORDERED: PROVENTIL INHALER 6.7 G (200 INHALATIONS) INH PRN (10:46)
[2018-03-04] MEDS ORDERED: Nitroglycerin 0.4 MG TAB (25 Tab Bottle) SL PRN (10:46)
--- NOTE | 2018-03-04 10:56 | PDOC.FPRHP ---
- History of Present Illness Chief Complaint: syncope History of Present Illness: 57 yo M w/ PMH of ESRD on HD MWF, COPD, DMII, PVD and chronic hypoxic respiratory failure requiring home O2 presented to ED after syncopal episode on his way to dialysis this AM. Pt and friend report he walked from his house to his friends home for transportation to dialysis; however, shortly after the walk to the friends house the pt ran out of oxygen on his portable O2 container. He then became extremely fatigued, had some associated SOB and dizziness and became unresponsive for approx 15-20 minutes. He was sitting when this happened and witness denies any trauma. Prior to unresponsive episode pt was attempting to switch his oxygen container nasal cnula; however, was unable to do so. He also endorses poor compliance with fluid and salt restriction over the last few days. CXR showed changes c/w pulm edema and ABG done in ED showed pH of 7.19, pCO2 of 77.5 and pO2 of 64.7 c/w acute on chronic hypoxic hypercapnic respiratory failure. He was placed on BiPap and quickly improved. Nephro was consulted from ED and plans to dialyze today. ED Course: 125 solumedrol and duoneb X1 - Allergies/Adverse Reactions Allergies Allergy/AdvReac Type Severity Reaction Status Date / Time baclofen Allergy Verified 12/01/13 02:39 cephalexin monohydrate Allergy Rash Verified 12/01/13 02:39 [From Keflex] fosinopril sodium Allergy Verified 12/01/13 02:39 [From Monopril] haloperidol [From Haldol] Allergy Verified 12/01/13 02:39 haloperidol lactate Allergy Verified 12/01/13 02:39 [From Haldol] - Home Medications Medication Instructions Recorded Confirmed Type Aspirin 325 mg PO DAILY 11/05/12 12/26/17 History ALPRAZolam [Xanax] 1 mg PO BID #0 12/02/13 12/26/17 Rx Albuterol Sulfate 1.25 mg NEB [id number] PRN #0 neb 07/16/15 12/26/17 Rx Albuterol Sulfate [Proair HFA] 2 puff INH Q4HR PRN #0 inh 07/16/15 12/26/17 Rx Atorvastatin Calcium [Lipitor] 40 mg PO HS #0 tab 07/16/15 12/26/17 Rx Isosorbide Mononitrate [Imdur] 60 mg PO DAILY #30 tab 07/16/15 12/26/17 Rx Nitroglycerin [Nitrostat] 0.4 mg PO Q5MIN PRN #0 tab 07/16/15 12/26/17 Rx Paroxetine HCl [PARoxetine HCl] 10 mg PO DAILY #0 tablet 07/16/15 12/26/17 Rx Diltiazem CD [Cardizem CD] 120 mg PO DAILY 12/20/16 12/26/17 History Insulin Detemir 100 UNITS/ML 20 units SC HS 12/20/16 12/26/17 History [Levemir] Metoprolol Tartrate [Lopressor] 25 mg PO DAILY 12/20/16 12/26/17 History Sevelamer Carbonate [Renvela] 6 cap PO TID-WM 12/20/16 12/26/17 History Folic Acid/Vit B Comp W-C 1 tab PO DAILY tab 12/22/16 12/26/17 Rx [Nephro-Ang] predniSONE 40 mg PO QAM-WM #4 tab 12/22/16 12/26/17 Rx Ranolazine [Ranexa] 500 mg PO BID #60 tab 12/27/17 Rx - History PMHx: ESRD on HD, COPD, chronic hypoxic respiratory failure, a fib, DMII PSHx: Rt TMA, left BKA, Left av fistula FHx: NA Social: Previous tobacco, no alcohol, denies drug use - Review of Systems General: reports: fatigue. denies: fever/chills ENT: denies: nasal congestion, rhinorrhea Respiratory: reports: shortness of breath, exercise intolerance. denies: cough , congestion Cardiovascular: denies: chest pain, palpitation, edema Gastrointestinal: denies: nausea, vomiting, diarrhea, constipation, abdominal pain Skin: denies: rashes, lesions Musculoskeletal: denies: pain, tenderness, stiffness Neurological: reports: syncope. denies: seizure Psychological: denies: anxiety, depression - Vital signs BP: 99/66 HR: 80 RR: 20 Tmax: 97.5 Pox: 92% on BiPAP Wt: 100Kg - Physical Exam Constitutional: awake, alert and oriented -Constitutional: on BiPap, appears comfortable HEENT: normocephalic and atraumatic, PERRLA, EOMI, conjunctiva clear, grossly normal vision, grossly normal hearing Neck: trachea midline, no JVD Heart: RRR, normal S1/S2 -Heart: JARED 2-3/6 Lungs: CTAB, no respiratory distress, good air movement, no rales/rhonchi, no wheezing, no retractions -Lungs: on BiPAP Abdomen: soft, non-tender, bowel sounds present Musculoskeletal: ROM grossly normal -Musculoskeletal: LLE BKA, RLE TMA,Left UE AV fistula w/ palpable thrill Neurological: no focal deficit Skin: no rash/lesions, good turgor, capillary refill <2 seconds Psychiatric: normal mood and affect FMR H&P: Results - Labs Result Diagrams: 03/04/18 06:27 03/04/18 06:27 Lab results: WBC 7.0 thou/uL (4.8-10.8) 03/04/18 06:27 Hgb 12.8 g/dL (14.0-18.0) L 03/04/18 06:27 Hct 41.2 % (42.0-52.0) L 03/04/18 06:27 MCV 99.9 fL (78.0-98.0) H 03/04/18 06:27 Plt Count 94 thou/uL (130-400) L 03/04/18 06:27 Neutrophils % 77.4 % (42.0-75.0) H 03/04/18 06:27 ABG pH 7.19 (7.35-7.45) L* 03/04/18 07:52 ABG pCO2 77.5 mmHg (35.0-45.0) H* 03/04/18 07:52 ABG pO2 64.7 mmHg (80.0-100.0) L 03/04/18 07:52 Sodium 136 mmol/L (136-145) 03/04/18 06:27 Potassium 6.1 mmol/L (3.5-5.1) H 03/04/18 06:27 Chloride 101 mmol/L (98-107) 03/04/18 06:27 Carbon Dioxide 18 mmol/L (22-29) L 03/04/18 06:27 BUN 63 mg/dL (8.4-25.7) H 03/04/18 06:27 Creatinine 9.49 mg/dL (0.6-1.3) H 03/04/18 06:27 Glucose 152 mg/dL (70-105) H 03/04/18 06:27 Lactic Acid 1.8 mmol/L (0.5-2.2) 03/04/18 06:27 Calcium 9.0 mg/dL (7.8-10.44) 03/04/18 06:27 Total Bilirubin 0.5 mg/dL (0.2-1.2) 03/04/18 06:27 AST 20 U/L (5-34) 03/04/18 06:27 ALT 19 U/L (8-55) 03/04/18 06:27 Alkaline Phosphatase 149 U/L (40-150) 03/04/18 06:27 Serum Total Protein 7.1 g/dL (6.0-8.3) 03/04/18 06:27 Albumin 3.4 g/dL (3.5-5.0) L 03/04/18 06:27 - Radiology Interpretation Chest x-ray Status: report reviewed by me (Pulmonary edema) FMR H&P: A/P - Problem List (1) Acute on chronic respiratory failure with hypoxia and hypercapnia Current Visit: Yes Status: Acute Code(s): J96.21 - ACUTE AND CHRONIC RESPIRATORY FAILURE WITH HYPOXIA; J96.22 - ACUTE AND CHRONIC RESPIRATORY FAILURE WITH HYPERCAPNIA (2) Increased anion gap metabolic acidosis Current Visit: Yes Status: Acute Code(s): E87.2 - ACIDOSIS (3) Hyperkalemia Current Visit: Yes Status: Acute Code(s): E87.5 - HYPERKALEMIA (4) Atrial fibrillation Current Visit: No Status: Chronic Code(s): I48.91 - UNSPECIFIED ATRIAL FIBRILLATION (5) CAD (coronary artery disease), [place] coronary artery Current Visit: No Status: Chronic Code(s): I25.10 - ATHSCL HEART DISEASE OF [place] CORONARY ARTERY W/O ANG PCTRS Qualifiers: [place] vs. transplanted heart: [place] heart (6) COPD (chronic obstructive pulmonary disease) Current Visit: No Status: Chronic (7) Diabetes mellitus, type II, insulin dependent Current Visit: No Status: Chronic Code(s): E11.9 - TYPE 2 DIABETES MELLITUS WITHOUT COMPLICATIONS; Z79.4 - MCC (CURRENT) USE OF INSULIN (8) End stage renal disease on dialysis Current Visit: No Status: Chronic Code(s): N18.6 - END STAGE RENAL DISEASE; Z99.2 - DEPENDENCE ON RENAL DIALYSIS - Plan 1) Syncope astrid 2/2 number 2 -see#2 2) Acute on chronic hypoxic hypercapnic respiratory failure on home O2 - pt ABG showed signs c/w acute on chronic respiratory failure and cxr showed pulm edema - likley multifactorial including volume overload in addition to lack of supplemental O2 - Nephro consulted from ED and plan to dialyze today - will cont BiPaP and transfer to [facility] until after dialysis, in hopes pt responds to volume removal with dialysis 3) Anion gap metabolic acidosis - in addition to primary respiratory acidosis - lactic acid negative, unlikely cause - asialey 2/2 ESRD requiring dialysis, dilutional vs lack of excretion - will plan for dialysis today and appreciate nephro recs 4) Hyperkalemia -dialysis 5) CAD - known h/o severe 4 vessel disease - not a candidate for CABG - trops negative X2 and CP free - cont home meds 6) DMII: - lantus 40 U SC HS and aggressive SSI - hold home levemir accuchecks ACHS 7) A fib - cont home meds 8) COPD - home meds - not in acute exacerbation lung exam clear 9) ESRD - see above - cont dialysis nephro consulted Code status: Chemical code only PCP: Bhavna Disposition/LOS: Guarded, >/= 2 days FMR H&P: Upper Level - Plan Date/Time: 03/04/18 1050 I, [], have evaluated this patient and agree with findings/plan as outlined by music industry intern resident. Pertinent changes/additions are listed here. Attending Addendum - Attending Addendum Date/Time: 03/04/18 1311 I personally evaluated the patient and discussed the management with Dr. Rm. I agree with the History, Examination, Assessment and Plan documented above with any addition or exceptions noted below. The patient presented following a syncopal episode likely due to acute on chronic hypoxic hypercapnic respiratory failure. Family states he ran out of oxygen and when changing the tank, he forgot to change his tubing and thus wasn' t getting oxygen. He is now on bipap with improved O2sats. He has pleural effusions and needs dialysis. Nephrology is being consulted. Pt will be admitted to [facility].
[2018-03-04 13:23] LABS: Troponin I 0.024 ng/mL (< 0.028)
[2018-03-04 16:36] VITALS: BMI 33.4
[2018-03-04] MEDS: Sevelamer Carbonate 800 MG TAB PO SCH ×2 (18:25→22:12)
[2018-03-04] MEDS: ALPRAZolam 1 MG TAB PO SCH (22:52)
[2018-03-04] MEDS: Atorvastatin Calcium 40 MG TAB PO SCH (22:52)
[2018-03-04] MEDS: Insulin Glargine 40 UNITS in Pre-Filled Syringe SC SCH (22:53)
[2018-03-05 06:29] LABS: #Lymphocytes 0.6 thou/uL (1.20-3.40); #Monocytes 0.3 thou/uL (0.11-0.59); #Neutrophils 3.7 thou/uL (1.40-6.50); %Basophils 0.3 % (0.0-1.0); %Eosinophils 0.2 % (0.0-10.0); %Lymphocytes 13.7 % (21.0-51.0); %Monocytes 6.6 % (0.0-10.0); %Neutrophils 79.3 % (42.0-75.0); Hemoglobin 13.3 g/dL (14.0-18.0); Mean Corpuscular HGB CONC 31.2 g/dL (32.0-36.0); Mean Corpuscular Volume 99.4 fL (78.0-98.0); Mean Platelet Volume 8.2 fL (7.4-10.4); Platelet Count 97 thou/uL (130-400); RBC Distribution Width 14.9 % (11.5-14.5); Red Blood Cell (RBC) Count 4.28 mill/uL (4.70-6.10); White Blood Cell (WBC) Count 4.7 thou/uL (4.8-10.8)
[2018-03-05 06:41] LABS: Anion Gap 17 mmol/L (10-20); BUN (Urea Nitrogen) 39 mg/dL (8.4-25.7); Calc. Creatinine Clearance 16 mL/min (70-130); Calcium 9.2 mg/dL (7.8-10.44); Carbon Dioxide 25 mmol/L (22-29); Chloride 97 mmol/L (98-107); Estimated GFR-MDRD 9; Glucose 158 mg/dL (70-105); Potassium 5.1 mmol/L (3.5-5.1); Sodium 134 mmol/L (136-145)
--- NOTE | 2018-03-05 09:04 | PDOC.FM ---
- Subjective Subjective: No acute events overnight. Pt reports he is doing better, occasional SOB but improved from yesterday. - Objective Vital Signs & Weight: Vital Signs (12 hours) Temp Pulse Resp BP Pulse Ox 03/05/18 08:00 100 03/05/18 07:38 98.0 F 80 14 126/90 100 03/05/18 04:00 99.1 F 86 20 136/71 97 03/05/18 00:08 80 20 120/85 99 03/04/18 23:42 98.6 F 82 24 H 124/61 95 Weight Weight 93.894 kg I&O: 03/04/18 03/05/18 03/06/18 06:59 06:59 06:59 Intake Total 410 Balance 410 Result Diagrams: 03/05/18 05:51 03/05/18 05:51 <Brayan Rm - Last Filed: 03/05/18 09:01> - Objective Vital Signs & Weight: Vital Signs (12 hours) Temp Pulse Resp BP BP Pulse Ox 03/05/18 14:09 81 14 03/05/18 11:40 97.8 F 81 18 104/70 99 03/05/18 10:45 80 16 03/05/18 09:15 80 118/70 03/05/18 08:00 100 03/05/18 07:38 98.0 F 80 14 126/90 100 03/05/18 04:00 99.1 F 86 20 136/71 97 Weight Weight 93.894 kg I&O: 03/04/18 03/05/18 03/06/18 06:59 06:59 06:59 Intake Total 410 Balance 410 Result Diagrams: 03/05/18 05:51 03/05/18 05:51 <Shanique Mcdonald - Last Filed: 03/05/18 15:25> Phys Exam - Physical Examination Constitutional: NAD HEENT: PERRLA, sclera anicteric Neck: no nodes Respiratory: no wheezing, no rales, no rhonchi diminished bases Cardiovascular: RRR, no significant murmur, no rub Gastrointestinal: soft, non-tender, no distention Musculoskeletal: no edema, pulses present Neurological: non-focal, moves all 4 limbs Skin: no rash, cap refill <2 seconds <Brayan Rm - Last Filed: 03/05/18 09:01> Dx/Plan (1) Acute on chronic respiratory failure with hypoxia and hypercapnia Code(s): J96.21 - ACUTE AND CHRONIC RESPIRATORY FAILURE WITH HYPOXIA; J96.22 - ACUTE AND CHRONIC RESPIRATORY FAILURE WITH HYPERCAPNIA Status: Acute (2) Increased anion gap metabolic acidosis Code(s): E87.2 - ACIDOSIS Status: Acute (3) Hyperkalemia Code(s): E87.5 - HYPERKALEMIA Status: Acute (4) Atrial fibrillation Code(s): I48.91 - UNSPECIFIED ATRIAL FIBRILLATION Status: Chronic (5) CAD (coronary artery disease), [place] coronary artery Code(s): I25.10 - ATHSCL HEART DISEASE OF [place] CORONARY ARTERY W/O ANG PCTRS Status: Chronic Qualifiers: [place] vs. transplanted heart: [place] heart (6) COPD (chronic obstructive pulmonary disease) Status: Chronic (7) Diabetes mellitus, type II, insulin dependent Code(s): E11.9 - TYPE 2 DIABETES MELLITUS WITHOUT COMPLICATIONS; Z79.4 - CNA HHA (CURRENT) USE OF INSULIN Status: Chronic (8) End stage renal disease on dialysis Code(s): N18.6 - END STAGE RENAL DISEASE; Z99.2 - DEPENDENCE ON RENAL DIALYSIS Status: Chronic - Plan Plan: 1) Syncope asiaz[place] 2/2 number 2 - see#2 2) Acute on chronic hypoxic hypercapnic respiratory failure on home O2 - improved and currently on 3L which is his home O2 regimen and satting at 100% - plan to transfer to [facility] and likely DC to home tomorrow after dialysis 3) Anion gap metabolic acidosis - improving - astrid 2/2 ESRD requiring dialysis, dilutional vs lack of excretion -repeat am base met and dialysis tomorrow, appreciate nephro recs 4) Hyperkalemia -dialysis 5) CAD - known h/o severe 4 vessel disease - not a candidate for CABG - trops negative X2 and CP free - cont home meds 6) DMII: - lantus 40 U SC HS and aggressive SSI - hold home levemir -accuchecks ACHS 7) A fib - cont home meds 8) COPD - home meds - not in acute exacerbation lung exam clear - [facility] [place] today 9) ESRD - see above - cont dialysis nephro consulted <Brayan Rm - Last Filed: 03/05/18 09:01> (1) Acute on chronic respiratory failure with hypoxia and hypercapnia Code(s): J96.21 - ACUTE AND CHRONIC RESPIRATORY FAILURE WITH HYPOXIA; J96.22 - ACUTE AND CHRONIC RESPIRATORY FAILURE WITH HYPERCAPNIA Status: Acute (2) Increased anion gap metabolic acidosis Code(s): E87.2 - ACIDOSIS Status: Acute (3) Hyperkalemia Code(s): E87.5 - HYPERKALEMIA Status: Acute (4) Atrial fibrillation Code(s): I48.91 - UNSPECIFIED ATRIAL FIBRILLATION Status: Chronic (5) CAD (coronary artery disease), [place] coronary artery Code(s): I25.10 - ATHSCL HEART DISEASE OF [place] CORONARY ARTERY W/O ANG PCTRS Status: Chronic Qualifiers: [place] vs. transplanted heart: [place] heart (6) COPD (chronic obstructive pulmonary disease) Status: Chronic (7) Diabetes mellitus, type II, insulin dependent Code(s): E11.9 - TYPE 2 DIABETES MELLITUS WITHOUT COMPLICATIONS; Z79.4 - JAIL (CURRENT) USE OF INSULIN Status: Chronic (8) End stage renal disease on dialysis Code(s): N18.6 - END STAGE RENAL DISEASE; Z99.2 - DEPENDENCE ON RENAL DIALYSIS Status: Chronic <Shanique Mcdonald - Last Filed: 03/05/18 15:25> Attending Addendum - Attending Addendum Date/Time: 03/05/18 9264 I personally evaluated the patient and discussed the management with Dr. Rm. I agree with the History, Examination, Assessment and Plan documented above with any addition or exceptions noted below. Pt is off bipap. He still has some shortness of breath and we will titrate oxygen. Transfer to floor. <Shanique Mcdonald - Last Filed: 03/05/18 15:25>
[2018-03-05] MEDS: Sevelamer Carbonate 800 MG TAB PO SCH ×3 (09:14→16:58)
[2018-03-05] MEDS: Metoprolol Tartrate 25 MG TAB PO SCH (09:14)
[2018-03-05] MEDS: Aspirin 325 MG TAB PO SCH (09:14)
[2018-03-05] MEDS: Folic Acid/Vit B Comp W-C PO SCH (09:14)
[2018-03-05] MEDS: PARoxetine 20 MG TAB PO SCH (09:15)
[2018-03-05] MEDS: ALPRAZolam 1 MG TAB PO SCH ×2 (09:15→21:32)
--- NOTE | 2018-03-05 10:08 | PRG ---
DATE OF SERVICE: 03/04/2018 SUBJECTIVE: Mr. Goodman is a 57-year-old white male with ESRD and was admitted for generalized weakness. We were consulted for his maintenance hemodialysis. We did schedule him for dialysis. We were able to remove several liters of fluid with this dialysis. At that time, at the ER, the patient was complaining of some generalized malaise. He denied any chest pain, shortness of breath. OBJECTIVE: VITAL SIGNS: Blood pressure was noted to be at 90/61 with heart rate of 82, respiratory rate 10, temperature 97.5. GENERAL: Awake, alert, comfortable, not in distress. SKIN: Adequate turgor. HEENT: He has pinkish conjunctivae, anicteric sclerae. NECK: No neck mass. No carotid bruits. No JVD. CHEST: No deformities. EXTREMITIES: He has a leg amputation. MEDICATIONS: Medications of March 04, 2018 reviewed. LABORATORY DATA: Laboratories of March 04, 2018 reviewed. ASSESSMENT AND PLAN: 1. End-stage renal disease, stable, hemodialysis later this afternoon. Fluid removal as tolerated. 2. Calciphylaxis-we are trying to make arrangements for him to receive the sodium thiosulfate 25 g IV every dialysis at the outpatient setting. 3. Generalized malaise-rule out for myocardial infarction. 4. Continue current management. Job ID: [id number]
--- NOTE | 2018-03-05 10:56 | PRG ---
DATE OF SERVICE: 03/05/2018 RENAL MEDICINE SUBJECTIVE: Mr. Goodman is a 57-year-old white male with known history of ESRD, was admitted for generalized malaise. His shortness of breath is actually much improved also with dialysis yesterday. The plan is to continue his current Sunday, Sunday, Sunday dialysis regimen. No new complaints today. OBJECTIVE: VITAL SIGNS: Blood pressure is 126/90, heart rate 80, respiratory rate 14, temperature 98, and pulse ox 100%. GENERAL: Noted to be awake, supine, comfortable, not in distress. SKIN: Adequate turgor. HEENT: He has pinkish conjunctivae. Anicteric sclerae. NECK: No neck mass. No carotid bruits. No JVD. CHEST: No deformities. LUNGS: Decreased breath sounds. HEART: Normal sinus rhythm. No murmurs. No gallops. No rubs. ABDOMEN: Globular, soft, and nontender. No masses. EXTREMITIES: No edema. Please note, the patient is status post left BKA. MEDICATIONS: Medications of March 05, 2018 were reviewed. LABORATORY DATA: Laboratories of March 05, 2018; white count 4.7, hemoglobin 13.3, sodium 134, potassium 5.1, chloride 97, carbon dioxide 25, BUN is 39, creatinine 6.48, glucose 158, calcium 9.2. ASSESSMENT AND PLAN: 1. End-stage renal disease, stable. We will continue current Sunday, Sunday, Sunday dialysis. Maxing out fluid removal as tolerated by this patient. 2. Congestive heart failure, clinically much improved with fluid removal. 3. Generalized weakness. The patient is clinically also much improved. He is little stronger. 4. Calciphylaxis. We will initiate sodium thiosulfate in the outpatient setting. Overall, agreed with current management. Job ID: [id number]
[2018-03-05] MEDS: Atorvastatin Calcium 40 MG TAB PO SCH (21:32)
[2018-03-05] MEDS: Insulin Glargine 40 UNITS in Pre-Filled Syringe SC SCH (21:32)
[2018-03-06 05:44] LABS: #Lymphocytes 1.3 thou/uL (1.20-3.40); #Monocytes 0.9 thou/uL (0.11-0.59); #Neutrophils 7.7 thou/uL (1.40-6.50); %Basophils 0.1 % (0.0-1.0); %Eosinophils 0.4 % (0.0-10.0); %Lymphocytes 13.5 % (21.0-51.0); %Neutrophils 77.1 % (42.0-75.0); Hemoglobin 12.7 g/dL (14.0-18.0); Mean Corpuscular HGB CONC 30.9 g/dL (32.0-36.0); Mean Corpuscular Hemoglobin 30.7 pg (27.0-31.0); Mean Corpuscular Volume 99.3 fL (78.0-98.0); Mean Platelet Volume 8.4 fL (7.4-10.4); Platelet Count 105 thou/uL (130-400); Red Blood Cell (RBC) Count 4.14 mill/uL (4.70-6.10); White Blood Cell (WBC) Count 9.9 thou/uL (4.8-10.8)
[2018-03-06 05:58] LABS: Anion Gap 17 mmol/L (10-20); BUN (Urea Nitrogen) 61 mg/dL (8.4-25.7); Calc. Creatinine Clearance 14 mL/min (70-130); Carbon Dioxide 26 mmol/L (22-29); Chloride 94 mmol/L (98-107); Estimated GFR-MDRD 7; Glucose 102 mg/dL (70-105); Potassium 5.3 mmol/L (3.5-5.1); Sodium 132 mmol/L (136-145)
--- NOTE | 2018-03-06 09:24 | PRG ---
DATE OF SERVICE: 03/06/2018 SERVICE: Renal Medicine. SUBJECTIVE: Mr. Goodman is a 57-year-old white male with ESRD, followed by the Renal Service for his maintenance hemodialysis. He is scheduled for dialysis this morning. He voices no new complaints. He denies any chest pain or shortness of breath. OBJECTIVE: VITAL SIGNS: Blood pressure is 106/53, heart rate 80, respiratory rate 16, temperature 97.5, and pulse ox 94%. GENERAL: Awake, alert, comfortable, not in distress. SKIN: Adequate turgor. HEENT: He has pinkish conjunctivae. Anicteric sclerae. NECK: No neck mass. No carotid bruits. No JVD. CHEST: No deformities. LUNGS: Clear breath sounds. HEART: Normal sinus rhythm. No murmur. No gallops. No rubs. ABDOMEN: Globular, soft, nontender. No masses. EXTREMITIES: Status post leg amputation. MEDICATIONS: Medications of March 06, 2018, were reviewed. LABORATORY DATA: Laboratories of March 06, 2018, white count 9.1 and hemoglobin 12.7. Sodium 132, potassium 5.3, chloride 94, carbon dioxide 26, BUN is 61, creatinine 7.7, glucose 102, and calcium 9.0. ASSESSMENT AND PLAN: 1. End-stage renal disease, stable. We will continue current Sunday, Sunday, and Sunday dialysis. Again, fluid removal as tolerated by the patient. 2. Calciphylaxis. Plan is to give sodium thiosulfate 25 g IV every dialysis in the outpatient setting. 3. Mild shortness of breath, much improved. Continue fluid removal with dialysis. Initial chest x-ray showed congestive heart failure. He is breathing better now. Job ID: [id number]
--- NOTE | 2018-03-06 09:37 | PDOC.FM ---
- Subjective Subjective: EFRAIN events overnight. Pt O2sats remain stable, some exertional hypoxia, otherwise 99-100 on 3L NC. - Objective Vital Signs & Weight: Vital Signs (12 hours) Temp Pulse Resp BP Pulse Ox 03/06/18 07:34 96 20 88 L 03/06/18 07:15 98.7 F 81 16 111/70 96 03/06/18 04:00 97.5 F L 80 16 106/53 L 94 L 03/06/18 00:53 99 03/06/18 00:00 98.0 F 80 15 106/75 97 Weight Weight 93.894 kg I&O: 03/05/18 03/06/18 03/07/18 06:59 06:59 06:59 Intake Total 410 1090 Output Total 0 Balance 410 1090 Result Diagrams: 03/06/18 05:09 03/06/18 05:09 <Brayan Rm - Last Filed: 03/06/18 09:35> - Objective Vital Signs & Weight: Vital Signs (12 hours) Temp Pulse Resp BP Pulse Ox 03/06/18 07:34 96 20 88 L 03/06/18 07:15 98.7 F 81 16 111/70 96 03/06/18 04:00 97.5 F L 80 16 106/53 L 94 L 03/06/18 00:53 99 03/06/18 00:00 98.0 F 80 15 106/75 97 Weight Weight 93.894 kg I&O: 03/05/18 03/06/18 03/07/18 06:59 06:59 06:59 Intake Total 410 1090 Output Total 0 Balance 410 1090 Result Diagrams: 03/06/18 05:09 03/06/18 05:09 <Shaniqeu Mcdonald - Last Filed: 03/06/18 10:58> Phys Exam - Physical Examination Constitutional: NAD HEENT: PERRLA, moist MMs Neck: no nodes, no JVD Respiratory: no wheezing, no rales, no rhonchi, clear to auscultation bilateral Cardiovascular: RRR, no significant murmur, no rub Gastrointestinal: soft, non-tender, no distention, positive bowel sounds Musculoskeletal: no edema Neurological: non-focal, moves all 4 limbs Psychiatric: normal affect Skin: no rash, cap refill <2 seconds <Brayan Rm - Last Filed: 03/06/18 09:35> Dx/Plan (1) Acute on chronic respiratory failure with hypoxia and hypercapnia Code(s): J96.21 - ACUTE AND CHRONIC RESPIRATORY FAILURE WITH HYPOXIA; J96.22 - ACUTE AND CHRONIC RESPIRATORY FAILURE WITH HYPERCAPNIA Status: Acute (2) Increased anion gap metabolic acidosis Code(s): E87.2 - ACIDOSIS Status: Acute (3) Hyperkalemia Code(s): E87.5 - HYPERKALEMIA Status: Acute (4) Atrial fibrillation Code(s): I48.91 - UNSPECIFIED ATRIAL FIBRILLATION Status: Chronic (5) CAD (coronary artery disease), [place] coronary artery Code(s): I25.10 - ATHSCL HEART DISEASE OF [place] CORONARY ARTERY W/O ANG PCTRS Status: Chronic Qualifiers: [place] vs. transplanted heart: [place] heart (6) COPD (chronic obstructive pulmonary disease) Status: Chronic (7) Diabetes mellitus, type II, insulin dependent Code(s): E11.9 - TYPE 2 DIABETES MELLITUS WITHOUT COMPLICATIONS; Z79.4 - [facility] (CURRENT) USE OF INSULIN Status: Chronic (8) End stage renal disease on dialysis Code(s): N18.6 - END STAGE RENAL DISEASE; Z99.2 - DEPENDENCE ON RENAL DIALYSIS Status: Chronic - Plan Plan: 1) Syncope astrid 2/2 number 2 - see#2 2) Acute on chronic hypoxic hypercapnic respiratory failure on home O2 - improved and currently on 3L which is his home O2 regimen and satting at 100% - home today after dialysis and more fluid removal as tolerated 3) Anion gap metabolic acidosis - improved - dialysis today and then home 4) Hyperkalemia -dialysis, then stable for DC to home 5) CAD - known h/o severe 4 vessel disease - not a candidate for CABG - trops negative X2 and CP free - cont home meds - stable for DC to home today after dialysis 6) DMII: - lantus 40 U SC HS and aggressive SSI - hold home levemir -accuchecks ACHS 7) A fib - cont home meds 8) COPD - home meds - not in acute exacerbation lung exam clear - [facility] today 9) ESRD - see above - cont dialysis nephro consulted Dispo: stable and improved. Pt will be dc'd to home today after dialysis. <Brayan Rm - Last Filed: 03/06/18 09:35> (1) Acute on chronic respiratory failure with hypoxia and hypercapnia Code(s): J96.21 - ACUTE AND CHRONIC RESPIRATORY FAILURE WITH HYPOXIA; J96.22 - ACUTE AND CHRONIC RESPIRATORY FAILURE WITH HYPERCAPNIA Status: Acute (2) Increased anion gap metabolic acidosis Code(s): E87.2 - ACIDOSIS Status: Acute (3) Hyperkalemia Code(s): E87.5 - HYPERKALEMIA Status: Acute (4) Atrial fibrillation Code(s): I48.91 - UNSPECIFIED ATRIAL FIBRILLATION Status: Chronic (5) CAD (coronary artery disease), [place] coronary artery Code(s): I25.10 - ATHSCL HEART DISEASE OF [place] CORONARY ARTERY W/O ANG PCTRS Status: Chronic Qualifiers: [place] vs. transplanted heart: [place] heart (6) COPD (chronic obstructive pulmonary disease) Status: Chronic (7) Diabetes mellitus, type II, insulin dependent Code(s): E11.9 - TYPE 2 DIABETES MELLITUS WITHOUT COMPLICATIONS; Z79.4 - [facility] (CURRENT) USE OF INSULIN Status: Chronic (8) End stage renal disease on dialysis Code(s): N18.6 - END STAGE RENAL DISEASE; Z99.2 - DEPENDENCE ON RENAL DIALYSIS Status: Chronic <Shanique Mcdonald - Last Filed: 03/06/18 10:58> Attending Addendum - Attending Addendum Date/Time: 03/06/18 1058 I personally evaluated the patient and discussed the management with Dr. Rm. I agree with the History, Examination, Assessment and Plan documented above with any addition or exceptions noted below. The patient is stable on oxygen. He will have dialysis today and then discharge home. <Shanique Mcdonald - Last Filed: 03/06/18 10:58>
[2018-03-06] MEDS: Sevelamer Carbonate 800 MG TAB PO SCH ×3 (10:22→20:25)
--- NOTE | 2018-03-06 11:00 | CON ---
DATE OF CONSULTATION: HISTORY OF PRESENT ILLNESS: Roly Goodman is a 57-year-old gentleman, who presented to the hospital after he underwent dialysis yesterday and got weak, lightheaded, could not walk. He apparently got hypoxic and his blood pressure was low at 80 systolic and brought into the hospital. On arrival, he felt better. His x-ray showed a right-sided infiltrate. The patient has been here numerous times in the hospital. PAST MEDICAL HISTORY: Positive for; 1. Coronary artery disease. 2. Congestive heart failure. 3. Chronic renal failure. 4. COPD. 5. Hypertension. PAST SURGICAL HISTORY: Previous surgeries including; 1. Coronary artery bypass surgery. 2. Amputation, left below knee. 3. Pacemaker. SOCIAL HISTORY: Quit smoking 8 years ago, pack a day. Alcohol, none. Drugs, none listed. HOME MEDICATIONS: Home medicine includes; 1. Prednisone 40. 2. Renvela 6 capsules a day. 3. Paroxetine 10 mg a day. 4. Lopressor 25 once a day. 5. Imdur 60. 6. Insulin Levemir 20. 7. Pepcid. 8. Cardizem CD 120. 9. Lipitor 20. 10. Aspirin. 11. ProAir. 12. Xanax 1 b.i.d. ALLERGIES: KEFLEX, HALDOL, MONOPRIL. REVIEW OF SYSTEMS: Otherwise, 10-point negative. PHYSICAL EXAMINATION: GENERAL: He is awake, alert, responsive. VITAL SIGNS: Sats 100% on 3 L, temperature is 98, pulse 80, respirations 14, and blood pressure is 126/90. EXTREMITIES: He has trace edema in his right leg. CHEST: Decreased breath sounds. No wheezing. CARDIAC: Normal S1 and S2. No gallops, no masses. LABORATORY DATA: Creatinine is 6.48. White count is 4000 and H and H are 13 and 42. IMAGING STUDIES: His chest x-ray shows cephalization and questionable right-sided infiltrate. IMPRESSION: 1. History of dizziness. 2. Hypertension, resolved. 3. Congestive heart failure. 4. Chronic renal failure. 5. Chronic obstructive pulmonary disease. PLAN: Continue observation , can probably undergo dialysis. We will discharge him home at any time. Pulmonary will follow. Job ID: [id number]
--- NOTE | 2018-03-06 11:42 | PRG ---
DATE OF SERVICE: 03/06/2018 SUBJECTIVE: This morning, he is doing much better. Less short of breath, less cough, and less wheezing. OBJECTIVE: VITAL SIGNS: Sats are 94% on 3 liters, respiratory rate 20, temperature 98, and blood pressure 110/70. CHEST: Decreased breath sounds without any wheezing. CARDIAC: Normal S1 and S2. No gallops or masses. IMPRESSION: 1. Chronic obstructive pulmonary disease. 2. Bronchitis. 3. Hypertension, improved. 4. Chronic renal failure. PLAN: Continue present neb treatments. Supportive care. We will follow. Job ID: [id number]
[2018-03-06] MEDS: ALPRAZolam 1 MG TAB PO SCH ×2 (17:53→20:27)
[2018-03-06] MEDS: Aspirin 325 MG TAB PO SCH (20:20)
[2018-03-06] MEDS: Folic Acid/Vit B Comp W-C PO SCH (20:20)
[2018-03-06] MEDS: Metoprolol Tartrate 25 MG TAB PO SCH (20:21)
[2018-03-06] MEDS: PARoxetine 20 MG TAB PO SCH (20:21)
[2018-03-06] MEDS: Atorvastatin Calcium 40 MG TAB PO SCH (20:22)
[2018-03-06] MEDS: Insulin Glargine 40 UNITS in Pre-Filled Syringe SC SCH (20:59)
[2018-03-07 05:47] LABS: #Eosinphils 0.1 thou/uL (0.0-0.7); #Lymphocytes 1.1 thou/uL (1.20-3.40); #Neutrophils 5.4 thou/uL (1.40-6.50); %Basophils 0.4 % (0.0-1.0); %Eosinophils 1.4 % (0.0-10.0); %Lymphocytes 14.8 % (21.0-51.0); %Monocytes 12.9 % (0.0-10.0); %Neutrophils 70.5 % (42.0-75.0); Hemoglobin 12.7 g/dL (14.0-18.0); Mean Corpuscular HGB CONC 30.1 g/dL (32.0-36.0); Mean Corpuscular Hemoglobin 30.2 pg (27.0-31.0); Mean Platelet Volume 7.9 fL (7.4-10.4); Platelet Count 105 thou/uL (130-400); RBC Distribution Width 15.1 % (11.5-14.5); Red Blood Cell (RBC) Count 4.21 mill/uL (4.70-6.10); White Blood Cell (WBC) Count 7.7 thou/uL (4.8-10.8)
[2018-03-07 06:16] LABS: Anion Gap 15 mmol/L (10-20); BUN (Urea Nitrogen) 32 mg/dL (8.4-25.7); Calc. Creatinine Clearance 20 mL/min (70-130); Carbon Dioxide 25 mmol/L (22-29); Chloride 100 mmol/L (98-107); Estimated GFR-MDRD 11; Potassium 4.5 mmol/L (3.5-5.1); Sodium 135 mmol/L (136-145)
[2018-03-07 06:20] LABS: Glucose 41 mg/dL (70-105)
[2018-03-07] MEDS: Metoprolol Tartrate 25 MG TAB PO SCH (09:08)
[2018-03-07] MEDS: Aspirin 325 MG TAB PO SCH (09:08)
[2018-03-07] MEDS: Folic Acid/Vit B Comp W-C PO SCH (09:08)
[2018-03-07] MEDS: ALPRAZolam 1 MG TAB PO SCH (09:08)
[2018-03-07] MEDS: Sevelamer Carbonate 800 MG TAB PO SCH ×2 (09:08→13:14)
[2018-03-07] MEDS: PARoxetine 20 MG TAB PO SCH (09:09)
--- NOTE | 2018-03-07 10:37 | PRG ---
DATE OF SERVICE: 03/07/2018 SERVICE: Renal Medicine. SUBJECTIVE: Mr. Goodman is a 57-year-old white male with ESRD. Admitted for shortness of breath and for CHF. We are following him up for his maintenance hemodialysis. He underwent hemodialysis yesterday without any difficulty. He did well. This morning, he voices no new complaints, except he has not received his breakfast. I have made arrangements for the staff to call in his breakfast. OBJECTIVE: VITAL SIGNS: Blood pressure is 126/68, heart rate 80, respiratory rate 16, temperature 97.6, and pulse ox 98%. GENERAL: Awake, alert, comfortable, and not in distress. SKIN: Adequate turgor. HEENT: Pinkish conjunctivae, anicteric sclerae. No neck mass. No carotid bruits. No JVD. CHEST: No deformities. LUNGS: Clear breath sounds. No wheezing. No crackles. HEART: Normal sinus rhythm. No murmur. No gallops. No rubs. ABDOMEN: Globular, soft, and nontender. EXTREMITIES: Status post leg amputation. MEDICATIONS: Medications of March 07, 2018, were reviewed. LABORATORY DATA: Laboratories of March 07, 2018, white count 7.7, hemoglobin 12.7. Sodium 135, potassium 4.5, chloride 100, carbon dioxide 25, BUN 32, creatinine 5.38, glucose is 94, and calcium 9. ASSESSMENT AND PLAN: 1. End-stage renal disease, stable. Continuing Sunday, Sunday, and Sunday hemodialysis regimen. Again, fluid removal as tolerated by the patient. 2. Congestive heart failure/shortness of breath, much improved. 3. 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 I agree with current management. Job ID: [id number]
--- NOTE | 2018-03-07 10:46 | PDOC.FM ---
- Subjective Subjective: EFRAIN overnight. Pt has no complaints. - Objective Vital Signs & Weight: Vital Signs (12 hours) Temp Pulse Resp BP Pulse Ox 03/07/18 09:57 86 20 03/07/18 08:00 98 F 80 18 106/58 L 100 03/07/18 07:31 80 16 03/07/18 04:00 97.6 F 82 16 126/60 98 Weight Weight 93.894 kg I&O: 03/06/18 03/07/18 03/08/18 06:59 06:59 06:59 Intake Total 1090 1450 Output Total 0 2500 Balance 1090 -1050 Result Diagrams: 03/07/18 05:06 03/07/18 05:06 <Brayan Rm - Last Filed: 03/07/18 10:42> - Objective Vital Signs & Weight: Vital Signs (12 hours) Temp Pulse Resp BP BP Pulse Ox 03/07/18 12:00 97.5 F L 87 18 113/54 L 90 L 03/07/18 09:57 86 20 03/07/18 08:00 98 F 80 18 106/58 L 100 03/07/18 07:31 80 16 Weight Weight 93.894 kg I&O: 03/06/18 03/07/18 03/08/18 06:59 06:59 06:59 Intake Total 1090 1450 Output Total 0 2500 Balance 1090 -1050 Result Diagrams: 03/07/18 05:06 03/07/18 05:06 <Shanique Mcdonald - Last Filed: 03/07/18 16:48> Phys Exam - Physical Examination Constitutional: NAD HEENT: PERRLA, moist MMs, sclera anicteric Neck: no nodes, no JVD Respiratory: no wheezing, no rales, no rhonchi, clear to auscultation bilateral Cardiovascular: RRR, no significant murmur, no rub Gastrointestinal: soft, non-tender, no distention, positive bowel sounds Musculoskeletal: no edema, pulses present Neurological: non-focal, moves all 4 limbs Psychiatric: normal affect Skin: no rash <Brayan Rm - Last Filed: 03/07/18 10:42> Dx/Plan (1) Acute on chronic respiratory failure with hypoxia and hypercapnia Code(s): J96.21 - ACUTE AND CHRONIC RESPIRATORY FAILURE WITH HYPOXIA; J96.22 - ACUTE AND CHRONIC RESPIRATORY FAILURE WITH HYPERCAPNIA Status: Acute (2) Increased anion gap metabolic acidosis Code(s): E87.2 - ACIDOSIS Status: Acute (3) Hyperkalemia Code(s): E87.5 - HYPERKALEMIA Status: Acute (4) Atrial fibrillation Code(s): I48.91 - UNSPECIFIED ATRIAL FIBRILLATION Status: Chronic (5) CAD (coronary artery disease), [place] coronary artery Code(s): I25.10 - ATHSCL HEART DISEASE OF [place] CORONARY ARTERY W/O ANG PCTRS Status: Chronic Qualifiers: [place] vs. transplanted heart: [place] heart (6) COPD (chronic obstructive pulmonary disease) Status: Chronic (7) Diabetes mellitus, type II, insulin dependent Code(s): E11.9 - TYPE 2 DIABETES MELLITUS WITHOUT COMPLICATIONS; Z79.4 - [place] (CURRENT) USE OF INSULIN Status: Chronic (8) End stage renal disease on dialysis Code(s): N18.6 - END STAGE RENAL DISEASE; Z99.2 - DEPENDENCE ON RENAL DIALYSIS Status: Chronic - Plan Plan: 1) Syncope likley 2/2 number 2 - resolved, dc to home today 2) Acute on chronic hypoxic hypercapnic respiratory failure on home O2 - resolved, dc to home today 3) Anion gap metabolic acidosis - resolved, home today 4) Hyperkalemia -resolved, home today 5) CAD - OP echo and HF/cardiology referral and 7 day f/u with PCP - dc to home today 6) DMII: - stable - episode of hypoglycemia - dc to home with home regimen 7) A fib - cont home meds - dc to home, stable 8) COPD - stable, dc to home today 9) ESRD - stable, cont dialysisi regimen Dispo:dc to home today. Stable. <Brayan Rm - Last Filed: 03/07/18 10:42> (1) Acute on chronic respiratory failure with hypoxia and hypercapnia Code(s): J96.21 - ACUTE AND CHRONIC RESPIRATORY FAILURE WITH HYPOXIA; J96.22 - ACUTE AND CHRONIC RESPIRATORY FAILURE WITH HYPERCAPNIA Status: Acute (2) Increased anion gap metabolic acidosis Code(s): E87.2 - ACIDOSIS Status: Acute (3) Hyperkalemia Code(s): E87.5 - HYPERKALEMIA Status: Acute (4) Atrial fibrillation Code(s): I48.91 - UNSPECIFIED ATRIAL FIBRILLATION Status: Chronic (5) CAD (coronary artery disease), [place] coronary artery Code(s): I25.10 - ATHSCL HEART DISEASE OF [place] CORONARY ARTERY W/O ANG PCTRS Status: Chronic Qualifiers: [place] vs. transplanted heart: [place] heart (6) COPD (chronic obstructive pulmonary disease) Status: Chronic (7) Diabetes mellitus, type II, insulin dependent Code(s): E11.9 - TYPE 2 DIABETES MELLITUS WITHOUT COMPLICATIONS; Z79.4 - [employer] (CURRENT) USE OF INSULIN Status: Chronic (8) End stage renal disease on dialysis Code(s): N18.6 - END STAGE RENAL DISEASE; Z99.2 - DEPENDENCE ON RENAL DIALYSIS Status: Chronic <Shanique Mcdonald - Last Filed: 03/07/18 16:48> Attending Addendum - Attending Addendum Date/Time: 03/07/18 5381 I personally evaluated the patient and discussed the management with Dr. Rm. I agree with the History, Examination, Assessment and Plan documented above with any addition or exceptions noted below. Patient is feeling well and will be discharged. <Shanique Mcdonald - Last Filed: 03/07/18 16:48>
[2018-03-07 12:41] VITALS: BP 113/54; TEMP 97.5
--- NOTE | 2018-03-11 11:41 | DIS ---
DATE OF ADMISSION: 03/04/2018 DATE OF DISCHARGE: 03/07/2018 LOCATION: [place], [place]. ADMITTING ATTENDING: Shanique Mcdonald MD DISCHARGE ATTENDING: Shanique Mcdonald MD RESIDENT PHYSICIAN: Brayan Rm DO CONSULTS: 1. Dr. David Campbell, Nephrology. 2. Dr. Davis, Pulmonology. HISTORY OF PRESENT ILLNESS: The patient is a 57-year-old male with a past medical history of end-stage renal disease, on hemodialysis Sunday, Sunday, and Sunday, [id number] COPD, type 2 diabetes, peripheral vascular disease, and chronic hypoxic respiratory failure, on chronic home O2. He came into the ED after syncopal episode on his way to dialysis. The patient was walking from his house to a friend's for transportation dialysis. However, after his walk or sometimes during his walk to his friend's house, his home oxygen canister had become empty. At which point, he became extremely fatigued, had some associated shortness of breath, dizziness and then later was unresponsive for approximately 15 minutes. It was reported by the friend, who witnessed this episode that he continued to breathe during this time and they were able to actually switch his nasal cannula to the working oxygen tank. Initial chest x-ray in the ED showed pattern that was consistent with pulmonary edema and an ABG done in the ED showed a pH of 7.19, pCO2 of 77.5, and pO2 of 64.7, which was consistent with acute on chronic hypoxic and hypercapnic respiratory failure. He was placed on BiPAP and quickly improved in the ED. Over the next several days, the patient was slowly weaned off BiPAP and transitioned to nasal cannula O2, and his symptoms and respiratory status continued to improve. Overall, the patient had an uncomplicated hospital stay and was discharged home in stable condition. DISCHARGE MEDICATIONS: 1. Aspirin 325 mg daily. 2. Cardizem 120 mg daily. 3. Pepcid 20 mg p.o. b.i.d. 4. Levemir 20 units subcu at bedtime. 5. Lopressor 25 mg daily. 6. Renvela 6 capsules p.o. t.i.d. with meals. 7. Albuterol sulfate 1.25 mg nebulizer q.8 hours p.r.n. 8. ProAir RespiClick 2 puffs inhaled q.4 hours p.r.n. 9. Xanax 1 mg p.o. b.i.d. 10. Lipitor 40 mg p.o. at bedtime. 11. Folic acid and vitamin B12 supplement 1 tablet p.o. daily. 12. Imdur 60 mg p.o. daily. 13. Nitrostat 0.4 mg p.o. q.5 minutes p.r.n. 14. Fluoxetine 10 mg p.o. daily. 15. Prednisone 40 mg p.o. q.a.m. 16. Ranexa 500 mg p.o. b.i.d. DISCONTINUED MEDICATIONS: None. DISCHARGE PLAN: The patient is discharged home on 03/07/2018 in stable condition. DIET: Heart healthy, consistent carb, renal, high protein. ACTIVITY: Ad-selvin. FOLLOWUP: 1. Follow up with primary care provider in 7 to 10 days following discharge. 2. Follow up with bi data architect at scheduled dialysis appointment. 3. Follow up with Cardiology in 2 to 3 weeks following discharge. Job ID: [id number] LINA
--- NOTE | 2018-03-12 12:23 | PQF ---
GRAEME,TAYLA ROTH, FEDE Eagle MD [id number] [facility]- [id number] [phone] CLINICAL DOCUMENTATION CLARIFICATION FORM: POST DISCHARGE Addendum to original discharge summary date: ____ Late entry note date: __ DATE: 03/12/2018 ATTN: DR. ROTH Please exercise your independent, professional judgment in responding to the clarification form. Clinical indicators are provided on the bottom of this form for your review Please check appropriate box(s): HEART FAILURE: A. TYPE: [ ] Systolic / HFrEF [ ] Diastolic / HFpEF [ ] Combined Systolic / Diastolic B. ACUITY [ ] Acute [ ] Acute on Chronic [ ] Chronic [ ] Other diagnosis [ ] Unable to determine In addition, please specify: Present on Admission (POA): [ ] Yes [ ] No [ ] Unable to determine For continuity of documentation, please document condition throughout progress notes and discharge summary. Thank You. CLINICAL INDICATORS - SIGNS / SYMPTOMS / LABS: 03/04 -CXR results - shows pulmonary edema 03/05 Progress note - Congestive heart failure, clinically much improved with fluid removal 03/07 Progress note - Congestive heart failure/shortness of breath, much improved 03/06 Pulm consult - Congestive heart failure RISKS: ESRD Hypertension TREATMENTS: Hemodialysis - fluid removal Cardiac monitoring / telemetry (This form is maintained as a part of the permanent medical record) 2014 [employer], [employer]. All Rights Reserved Dilma Salazar, SOFÍA, JUNIOR MECHANICAL ENGINEER-H [email or web address] [phone] LINA
== END 2018-03-07 15:08 | disposition home health service (06) | DRG 189 ==
LOC: ERS 06:04 → ERHOLD 08:52 → IMCU/EMU 15:38 → 2NO 03-06 02:25
PROVIDERS: ADMIT Family Medicine; ATTEND Family Medicine
PROC: 5A09357 Assistance with Respiratory Ventilation, Less than 24 Consecutive Hours, Continuous Positive Airway Pressure (ICD-10-PCS; 2018-03-03)
PROC: 5A1D70Z Performance of Urinary Filtration, Intermittent, Less than 6 Hours Per Day (ICD-10-PCS; principal; 2018-03-06)
DX: J96.21 Acute and chronic respiratory failure with hypoxia (principal); N18.6 End stage renal disease; I13.2 Hypertensive heart and chronic kidney disease with heart failure and with stage 5 chronic kidney disease, or end stage renal disease; E87.4 Mixed disorder of acid-base balance; J96.22 Acute and chronic respiratory failure with hypercapnia; E87.5 Hyperkalemia; I48.2 Chronic atrial fibrillation; I25.10 Atherosclerotic heart disease of native coronary artery without angina pectoris; J44.9 Chronic obstructive pulmonary disease, unspecified; Z79.4 Long term (current) use of insulin; E11.22 Type 2 diabetes mellitus with diabetic chronic kidney disease; Z99.2 Dependence on renal dialysis; E83.59 Other disorders of calcium metabolism; I50.9 Heart failure, unspecified; Z95.1 Presence of aortocoronary bypass graft; Z95.0 Presence of cardiac pacemaker; Z87.891 Personal history of nicotine dependence; Z89.512 Acquired absence of left leg below knee; E11.649 Type 2 diabetes mellitus with hypoglycemia without coma; E11.51 Type 2 diabetes mellitus with diabetic peripheral angiopathy without gangrene
CPT/HCPCS: 36415; 36416; 71045; 80048; 80053; 82805; 83605; 84484; 85025; 87040; 90935; 93005; 94640; 94660; 96374; G0257; J2930; J7620

== ENCOUNTER 2018-03-14 17:20 | Emergency (ER) | payer MEDICARE ==
[2018-03-14 17:42] LABS: pH, Arterial 6.91 (7.35-7.45)
[2018-03-14 17:43] LABS: Actual Bicarbonate (HCO3a) 28.3 mEq/L (22-28); CO2 Tension 143.2 mmHg (35.0-45.0)
[2018-03-14 17:44] LABS: Base Excess (BEa) -7.6 mEq/L (-2.0 to +3.0)
[2018-03-14 17:45] LABS: Calcium, Ionized 1.21 mmol/L (1.12-1.30); Carboxyhemoglobin (COHb) 1.3 gm% (0.0-3.0); Potassium - ABG Lab 5.89 mmol/L (3.70-5.30)
[2018-03-14 17:46] LABS: Analyzer IN Cardio ER; Puncture Site RFA
[2018-03-14 17:47] LABS: Base Excess-Venous -6.1 mmol/L (0 (+/- 2.5)); CO2 Tension (PvCO2) 149.9 mmHg (41.0-51.0); Calcium, Ionized 1.31 mmol/L (1.12-1.32); Lactate 8.64 mmol/L (0.50-2.20); O2 Tension (PvO2) 27.1 mmHg (35.0-45.0); Potassium 5.7 mmol/L (3.4-4.7); T. Carbon Dioxide 35.6 mmol/L (1.0-85.0); pH (Venous) 6.924 (7.35-7.45); vO2 Saturation-calc 21.1 % (94-98)
[2018-03-14 17:53] LABS: Hemoglobin 12.9 g/dL (14.0-18.0); Mean Corpuscular HGB CONC 29.6 g/dL (32.0-36.0); Mean Platelet Volume 8.4 fL (7.4-10.4); Platelet Count 84 thou/uL (130-400); RBC Distribution Width 15.1 % (11.5-14.5); Red Blood Cell (RBC) Count 4.32 mill/uL (4.70-6.10)
[2018-03-14 18:04] LABS: Anisocytosis SLIGHT = 6-15 cells (100X) (0-5/hpf); Band 2 % (5-11); Lymphocytes 41 % (21-51); MDiff Complete? YES; Macrocytosis SLIGHT = 6-15 cells (100X) (0-5/hpf); Monocytes 9 % (0-10); Neutrophil 47 % (42-75); Nucleated RBC 3 % (0); PLT Morphology Comment Appears Decreased; Polychromasia SLIGHT = 2-3 cells (100X) (0-2/hpf); Reactive Lymphocytes 1 % (0-10); White Blood Cell (WBC) Count 11.1 thou/uL (4.8-10.8)
[2018-03-14 18:10] LABS: ALT (SGPT) 22 U/L (8-55); AST (SGOT) 33 U/L (5-34); Albumin 2.9 g/dL (3.5-5.0); Alkaline Phosphatase 139 U/L (40-150); Anion Gap 23 mmol/L (10-20); BUN (Urea Nitrogen) 44 mg/dL (8.4-25.7); Bilirubin, Total 0.6 mg/dL (0.2-1.2); CK (CPK) 118 U/L (30-200); Calc. Creatinine Clearance 0 mL/min (70-130); Calcium 9.3 mg/dL (7.8-10.44); Carbon Dioxide 24 mmol/L (22-29); Chloride 98 mmol/L (98-107); Estimated GFR-MDRD 9; Globulin 3.4 g/dL (2.4-3.5); Glucose 116 mg/dL (70-105); Protein, Total 6.3 g/dL (6.0-8.3); Sodium 139 mmol/L (136-145)
== END 2018-03-14 17:38 | disposition expired ==
LOC: ERS 17:20
DX: I46.9 Cardiac arrest, cause unspecified (principal); E87.2 Acidosis; I12.0 Hypertensive chronic kidney disease with stage 5 chronic kidney disease or end stage renal disease; E11.22 Type 2 diabetes mellitus with diabetic chronic kidney disease; N18.6 End stage renal disease; I48.91 Unspecified atrial fibrillation; I25.10 Atherosclerotic heart disease of native coronary artery without angina pectoris; F32.9 Major depressive disorder, single episode, unspecified; Z99.2 Dependence on renal dialysis; Z79.82 Long term (current) use of aspirin; Z79.4 Long term (current) use of insulin; Z79.899 Other long term (current) drug therapy
CPT/HCPCS: 31500; 80053; 82330; 82550; 82803; 82805; 83605; 85025; 92950; 94760; 96374; 96375